=== PATIENT | female | born 1970 | race American Indian/Alaskan Native ===

== ENCOUNTER 2020-09-20 14:22 | Emergency (ER) | payer MEDICAID ==
--- NOTE | 2020-09-20 15:03 | Emergency Department Report ---
HPI - General Chief Complaint: Allergic Reaction Time Seen by Provider: 09/20/20 14:57 - HPI HPI: 50 year old old female presents from [facility] for allergic reaction to medications received at the psychiatric facility. As per MAR alissa bulmaro received Haldol and Benadryl at 10 PM. Patient states she has a previous history of similar reaction to Benadryl in the past. As per review of MAR patient is allergic to guaifenesin/ dextromethorphan and Zestril. Patient is also receiving other scheduled medications as per DEC. As per sitter at the bedside patient has apparently not been sleeping well throughout the night but slept well last night and after she woke up staff noted facial and top lip swelling which has improved spontaneously since this morning. Patient denies wheezing, shortness of breath, tongue swelling, throat swelling ED Past Medical Hx - Past Medical History Hx Hypertension: Yes Hx Diabetes: Yes Additional medical history: Psychosis, hyperlipidemia - Social History Smoking Status: Former Smoker Substance Use Type: None - Medications Home Medications: Home Medications Medication Instructions Recorded Confirmed Last Taken Type EPINEPHrine [Epipen] 0.3 mg IJ ONCE PRN #1 auto.injct 09/20/20 Unknown Rx predniSONE [Deltasone] 40 mg PO QDAY 5 Days tab 09/20/20 Unknown Rx ED Review of Systems ROS: Stated complaint: ALLERGIC REACTION Other details as noted in HPI Physical Exam - Physical Exam Vital Signs: Vital Signs 09/20/20 14:35 Temperature 98.6 F Pulse Rate 84 Respiratory 18 Rate Blood Pressure 187/87 O2 Sat by Pulse 100 Oximetry Physical Exam: General: No acute distress Head: Atraumatic Eyes: normal appearance, periorbital edema ENT: Moist mucous membranes, upper lip edema without tongue edema, no stridor, no posterior pharyngeal edema Neck: Normal appearance, no midline tenderness Chest: Clear to auscultation bilaterally CV: Regular rate and rhythm Abdomen: Soft, normal bowel sounds, nontender, nondistended, no rebound or guarding Back: Normal inspection Extremity: Normal inspection, full range of motion Neuro: Alert O x 3, no facial asymmetry, speech clear, no gross motor sensory deficit Psych: Appropriate behavior Skin: No rash ED Course Vital Signs 09/20/20 14:35 Temperature 98.6 F Pulse Rate 84 Respiratory 18 Rate Blood Pressure 187/87 O2 Sat by Pulse 100 Oximetry - Reevaluation(s) Reevaluation #1: 09/20/20 17:49 Patient has some mild improvement upper lip swelling was persistent periorbital swelling with not any advancement of symptoms. Patient did receive Solu-Medrol 125 mg IV she continues to deny or show clinical findings of lip or tongue swelling or swelling to her throat. She is permitted to eat at this time 09/20/20 18:49 Patient has significant improvement in periorbital and lip edema. She is also speaking more and tolerated food and liquids without difficulty. She will be prepped for ED Medical Decision Making - Medical Decision Making 50-year-old female presents to the hospital secondary to allergic reaction. Patient received Haldol and Benadryl last night. Benadryl was not listed on her list of allergies and patient states that she has had a similar allergic reaction to Benadryl in the past. She received Solu-Medrol IV in the ED and was observed for several hours with significant improvement of periorbital and upper lip swelling. At no time did patient had shortness of breath or airway edema. She be discharged back to [facility] on prednisone for several days Critical Care Time: No Critical care attestation.: If time is entered above; I have spent that time in minutes in the direct care of this critically ill patient, excluding procedure time. ED Disposition Clinical Impression: Allergic reaction to drug Disposition: DC-01 TO HOME OR SELFCARE Is pt being admited?: No Does the pt Need Aspirin: No Condition: Stable Instructions: Allergies, Adult, [id number] Additional Instructions: Take the medication as prescribed. Follow-up with your doctor or doctor/clinic provided. Return if symptoms worsen as indicated by your discharge instructions. Patient reports an allergy to Benadryl with similar reaction. Patient did receive Benadryl while at [facility]. Please continue to avoid administration of Benadryl to the patient. Please note that patient's glucose levels might be more elevated with prednisone use and she may require additional insulin therapy during this time. Prescriptions: predniSONE [Deltasone] 40 mg PO QDAY 5 Days tab EPINEPHrine [Epipen] 0.3 mg IJ ONCE PRN #1 auto.injct PRN Reason: Anaphylaxis Referrals: PRIMARY CARE, [Primary Care Provider] - 3-5 Days DWIGHT SAPP MD [Staff Physician] - 3-5 Days Time of Disposition: 18:58
[2020-09-20] MEDS ORDERED: methylPREDNISolone Sod Succinate 125 MG/2 ML INJ IV ONE (15:13)
[2020-09-20 22:37] VITALS: BP 173/91
== END 2020-09-20 22:35 | disposition home or self-care (01) ==
LOC: ED 14:22 → EDSEX 14:22 → ED 22:35
DX: T78.40XA Allergy, unspecified, initial encounter (principal); I10 Essential (primary) hypertension; E11.9 Type 2 diabetes mellitus without complications; F23 Brief psychotic disorder; Z87.891 Personal history of nicotine dependence; X58.XXXA Exposure to other specified factors, initial encounter
CPT/HCPCS: 96374; 99283; J2930

== ENCOUNTER 2020-09-23 19:46 | Emergency (ER) | payer SELFPAY ==
[2020-09-23 22:02] VITALS: BP 211/94
== END 2020-09-24 | disposition left against medical advice (07) ==
LOC: ED 19:46
DX: Z53.21 Procedure and treatment not carried out due to patient leaving prior to being seen by health care provider (principal)

== ENCOUNTER 2020-09-27 09:43 | Inpatient (IN) | payer MEDICAID ==
--- NOTE | 2020-09-27 10:25 | Consultation ---
History of Present Illness Consult date: 09/27/20 History of present illness: [facility] Date of Service: 09/27/2020 10:01:33 Impression: R41.82 - AMS (Altered Mental Status) Comments/Sign-Out: in absence of clear focal neurological signs/symptoms. This is suggestive of either toxic/metabolic etiology vs. seizure with postictal state. Acute cerebral ischemia is clinically unlikely. CT head finding is likely technical artifact but should f/u with radiology on read. Metrics: Last Known Well: Unknown [employer] Notification Time: 09/27/2020 10:01:18 Arrival Time: 09/27/2020 09:43:00 Stamp Time: 09/27/2020 10:01:33 Time First Login Attempt: 09/27/2020 10:05:00 Video Start Time: 09/27/2020 10:05:00 Symptoms: ms change NIHSS Start Assessment Time: 09/27/2020 10:15:00 Patient is not a candidate for Alteplase/Activase. Patient was not deemed candidate for Alteplase/Activase thrombolytics because of not stroke. Video End Time: 09/27/2020 10:20:11 CT head was reviewed and results were: area of hypodensity right frontoparietal region but may be volume averaging as seen only one slice by my prelim review Clinical Presentation is not Suggestive of Large Vessel Occlusive Disease ED Physician notified of diagnostic impression and management plan on 09/27/2020 10:20:14 Our recommendations are outlined below. Recommendations: defer to primary team to pursue toxic/metabolic workup (including VPA level, nh3, lfts), address HTN and if negative, consider admission for seizure workup with inpatient neuro consult Routine Consultation with Inhouse Neurology for Follow up Care Sign Out: Discussed with Emergency Department Provider History of Present Illness: Patient is a 50 year old Female. Patient was brought by EMS for symptoms of ms change per ED staff: behavioral health hospital staff patient with schizophrenia, bipolar disorder with psychosis was found to be "slumped over on left side" at 7:00 with urinary/fecal incontinence and lethargy since then. Last known well is unknown. She has no reported hx of seizures but is presumably on VPA 500mg BID for mood disorder. Behavioral health staff was concerned about "sepsis" but alissa chamberlain is afebrile per ED staff. Patient unable to provide additional hx. Past Medical History: Hypertension Diabetes Mellitus Hyperlipidemia There is NO history of Atrial Fibrillation There is NO history of Coronary Artery Disease There is NO history of Stroke Anticoagulant use: No Antiplatelet use: aspirin Examination: BP( 201/82, afebrile, neck supple per ED nurse), Pulse(70), Blood Glucose(206) 1A: Level of Consciousness - Requires repeated stimulation to arouse + 2 1B: Ask Month and Age - Could Not Answer Either Question Correctly + 2 1C: Blink Eyes & Squeeze Hands - Performs Both Tasks + 0 2: Test Horizontal Extraocular Movements - Normal + 0 3: Test Visual Key - No Visual Loss + 0 4: Test Facial Palsy (Use Grimace if Obtunded) - Normal symmetry + 0 5A: Test Left Arm Motor Drift - No Drift for 10 Seconds + 0 5B: Test Right Arm Motor Drift - No Drift for 10 Seconds + 0 6A: Test Left Leg Motor Drift - No Drift for 5 Seconds + 0 6B: Test Right Leg Motor Drift - No Drift for 5 Seconds + 0 7: Test Limb Ataxia (FNF/Heel-Koehler) - No Ataxia + 0 8: Test Sensation - Normal; No sensory loss + 0 9: Test Language/Aphasia - Normal; No aphasia + 0 10: Test Dysarthria - Normal + 0 11: Test Extinction/Inattention - No abnormality + 0 NIHSS Score: 4 Consent could not be obtained due to patient status and family not available. Due to the immediate potential for life-threatening deterioration due to underlying acute neurologic illness, I spent 20 minutes providing critical care. This time includes time for face to face visit via telemedicine, review of medical records, imaging studies and discussion of findings with providers, the patient and/or family. Dr Kiesha Arias [employer] Case [id number] Medications and Allergies Allergies Allergy/AdvReac Type Severity Reaction Status Date / Time diphenhydramine Allergy Angioedema Verified 09/20/20 15:16 [From Benadryl] guaifenesin Allergy Anaphylaxis Verified 09/20/20 15:16 lisinopril [From Zestril] Allergy Anaphylaxis Verified 09/20/20 15:16 Home Medications Medication Instructions Recorded Confirmed Last Taken Type EPINEPHrine [Epipen] 0.3 mg IJ ONCE PRN #1 auto.injct 09/20/20 Unknown Rx predniSONE [Deltasone] 40 mg PO QDAY 5 Days tab 09/20/20 Unknown Rx Results - Laboratory Findings Abnormal Lab Findings: Abnormal Labs 09/27/20 10:00 POC Glucose 206 H
--- NOTE | 2020-09-27 10:35 | Cat Scan Report ---
CT head/brain wo con INDICATION / CLINICAL INFORMATION: 50 years Female; MAIN. Left-sided weakness TECHNIQUE: Routine CT head without contrast. All CT scans at this location are performed using CT dos e reduction for ALARA by means of automated exposure control. Motion artifact COMPARISON: None. FINDINGS: BRAIN / INTRACRANIAL CONTENTS: Branch ischemia seen in the right frontoparietal region, involving mot or and sensory cortex, predominantly inferiorly. Subtle changes in much larger MCA distribution may b e present on the right, as well, particularly in the right frontal region. Subtle decreased attenuati on seen in the insular cortex on the right. No signs of hemorrhagic transformation. Otherwise, no acute hemorrhage, mass effect, midline shift, hydrocephalus, or acute, large territori al infarct. No signs of significant atrophy or chronic infarct. No significant white matter abnormali ty seen. CRANIOCERVICAL JUNCTION: No significant abnormality. ORBITS: No significant abnormality of visualized orbits. SINUSES / MASTOIDS: Dehiscence of the lamina papyracea noted on the left. ADDITIONAL FINDINGS: None. IMPRESSION: 1. Findings concerning for ischemic change in portions of the right MCA territory, as described above . CODE STROKE: Exam Completed (NET DEVELOPER SOFTWARE ENGINEER C/CDT): 09/27/2020 9:19 AM Exam Reviewed (NET DEVELOPER SOFTWARE ENGINEER C/CDT): 9:24 AM Time of Communication (NET DEVELOPER SOFTWARE ENGINEER C/CDT): 9:29 AM Licensed Practitioner Receiving Report: Dr. Mccabe Signer Name: Malachi Steel MD, III Signed: 09/27/2020 10:31 AM Workstation Name: [employer]
--- NOTE | 2020-09-27 10:36 | Emergency Department Report ---
ED Neuro Deficit HPI - General Chief Complaint: Neuro Symptoms/Deficit Stated Complaint: AMS Time Seen by Provider: 09/27/20 10:21 Source: EMS Mode of arrival: Ambulatory Limitations: Other - History of Present Illness Initial Comments: Patient is 50 years old female with history of hypertension, diabetes and schizoaffective disorder. Patient brought to the emergency room via EMS from [facility] for evaluation of altered mental status. Unknown time of onset. Psychiatric facility staff found patient around 7 AM today laying on her left side with decreased responsiveness. Stroke protocol immediately initiated and patient moved to CT for stat CT brain without contrast. Stroke telemetry neurology immediately consulted and patient examined by Dr. Arias, and after reviewing the CT brain she indicated that patient is not a TPA candidate secondary to unknown time of onset. Patient is currently not communicating and obtunded however she responded to voice stimuli and she will move all her extremities in an angry way and she will go back to sleep again. -: unknown Location: altered Presenting Symptoms: Present: Altered Mental Status Place: other (psychiatric) - Related Data Home Medications: Previous Rx's Medication Instructions Recorded Last Taken Type EPINEPHrine [Epipen] 0.3 mg IJ ONCE PRN #1 auto.injct 09/20/20 Unknown Rx predniSONE [Deltasone] 40 mg PO QDAY 5 Days tab 09/20/20 Unknown Rx Allergies/Adverse Reactions: Allergies Allergy/AdvReac Type Severity Reaction Status Date / Time diphenhydramine Allergy Angioedema Verified 09/20/20 15:16 [From Benadryl] guaifenesin Allergy Anaphylaxis Verified 09/20/20 15:16 lisinopril [From Zestril] Allergy Anaphylaxis Verified 09/20/20 15:16 ED Review of Systems ROS: Stated complaint: AMS Other details as noted in HPI Comment: Unobtainable due to pts medical conditions ED Past Medical Hx - Past Medical History Hx Hypertension: Yes Hx Diabetes: Yes Additional medical history: Psychosis, hyperlipidemia - Social History Smoking Status: Unknown if ever smoked - Medications Home Medications: Home Medications Medication Instructions Recorded Confirmed Last Taken Type EPINEPHrine [Epipen] 0.3 mg IJ ONCE PRN #1 auto.injct 09/20/20 Unknown Rx predniSONE [Deltasone] 40 mg PO QDAY 5 Days tab 09/20/20 Unknown Rx ED Neuro Physical Exam - General Limitations: Other General appearance: obtunded Suspected Stroke: Yes - Head Head exam: Present: atraumatic, normocephalic, normal inspection - Eye Eye exam: Present: normal appearance, PERRL - ENT ENT exam: Present: normal exam, normal orophraynx, mucous membranes moist - Neck Neck exam: Present: normal inspection, full ROM. Absent: tenderness, meningismus - Respiratory Respiratory exam: Present: normal lung sounds bilaterally - Cardiovascular Cardiovascular Exam: Present: regular rate, normal rhythm, normal heart sounds - GI/Abdominal GI/Abdominal exam: Present: soft, normal bowel sounds. Absent: distended, tenderness, guarding, rebound, rigid, mass, bruit, pulsatile mass, hernia - Extremities Exam Extremities exam: Present: full ROM, normal capillary refill. Absent: pedal edema, calf tenderness - Back Exam Back exam: Present: normal inspection, full ROM. Absent: CVA tenderness (R), CVA tenderness (L) - Neurological Exam Neurological exam: Present: altered - NIHSS Assessment Interval: Baseline 1a. Level of Consciousness: resp stimuli/obtunded 1b. LOC Questions: answers no questions correctly 1c. LOC Commands: performs no tasks correctly 2. Best Gaze: normal 3. Visual: no visual loss 4. Facial Palsy: normal symmetrical movement 5b. Motor Arm Right: no drift 5a. Motor Arm Left: no drift 6a. Motor Leg Left: no drift 6b. Motor Leg Right: no drift 7. Limb Ataxia: absent 8. Sensory: coma/unresponsive 9. Best Language: no aphasia 10. Dysarthria: normal 11. Extinction/Inattention: no abnormality Total Score: 8 Stroke Severity: Moderate Stroke - Skin Skin exam: Present: warm, intact, normal color ED Course Vital Signs 09/27/20 10:33 Temperature 98.1 F Pulse Rate 70 Respiratory 18 Rate Blood Pressure 210/102 Blood Pressure 201/102 [Right] O2 Sat by Pulse 100 Oximetry - Lab Data Result diagrams: 09/27/20 10:50 09/27/20 10:50 Lab Results 09/27/20 09/27/20 09/27/20 Range/Units 10:00 10:50 10:50 WBC 11.2 H (4.5-11.0) K/mm3 RBC 3.00 L (3.65-5.03) M/mm3 Hgb 7.8 L (10.1-14.3) gm/dl Hct 24.1 L (30.3-42.9) % MCV 80 (79-97) fl MCH 26 L (28-32) pg MCHC 32 (30-34) % RDW 16.9 H (13.2-15.2) % Plt Count 169 (140-440) K/mm3 Lymph % (Auto) 24.2 (13.4-35.0) % [place] % (Auto) 8.0 H (0.0-7.3) % Eos % (Auto) 0.5 (0.0-4.3) % Baso % (Auto) 0.3 (0.0-1.8) % Lymph # (Auto) 2.7 (1.2-5.4) K/mm3 [place] # (Auto) 0.9 H (0.0-0.8) K/mm3 Eos # (Auto) 0.1 (0.0-0.4) K/mm3 Baso # (Auto) 0.0 (0.0-0.1) K/mm3 Seg Neutrophils % 67.0 (40.0-70.0) % Seg Neutrophils # 7.5 (1.8-7.7) K/mm3 PT 13.9 (12.2-14.9) Sec. INR 1.09 (0.87-1.13) APTT 25.7 (24.2-36.6) Sec. Sodium (137-145) mmol/L Potassium (3.6-5.0) mmol/L Chloride (98-107) mmol/L Carbon Dioxide (22-30) mmol/L Anion Gap mmol/L BUN (7-17) mg/dL Creatinine (0.6-1.2) mg/dL Estimated GFR ml/min BUN/Creatinine Ratio % Glucose (65-100) mg/dL POC Glucose 206 H (70-105) mg/dL Lactic Acid (0.7-2.0) mmol/L Calcium (8.4-10.2) mg/dL Total Bilirubin (0.1-1.2) mg/dL Direct Bilirubin (0-0.2) mg/dL Indirect Bilirubin mg/dL AST (5-40) units/L ALT (7-56) units/L Alkaline Phosphatase (35-129) units/L Troponin T (0.00-0.029) ng/mL Total Protein (6.3-8.2) g/dL Albumin (3.9-5) g/dL Albumin/Globulin Ratio % Triglycerides (2-149) mg/dL Cholesterol (50-199) mg/dL LDL Cholesterol Direct (50-130) mg/dL HDL Cholesterol (40-59) mg/dL Cholesterol/HDL Ratio % Urine Color (Yellow) Urine Turbidity (Clear) Urine pH (5.0-7.0) Ur Specific [place] (1.003-1.030) Urine Protein (Negative) mg/dL Urine Glucose (UA) (Negative) mg/dL Urine Ketones (Negative) mg/dL Urine Blood (Negative) Urine Nitrite (Negative) Urine Bilirubin (Negative) Urine Urobilinogen (<2.0) mg/dL Ur Leukocyte Esterase (Negative) Urine WBC (Auto) (0.0-6.0) /HPF Urine RBC (Auto) (0.0-6.0) /HPF Urine Mucus /HPF 09/27/20 09/27/20 09/27/20 Range/Units 10:50 10:50 10:50 WBC (4.5-11.0) K/mm3 RBC (3.65-5.03) M/mm3 Hgb (10.1-14.3) gm/dl Hct (30.3-42.9) % MCV (79-97) fl MCH (28-32) pg MCHC (30-34) % RDW (13.2-15.2) % Plt Count (140-440) K/mm3 Lymph % (Auto) (13.4-35.0) % [place] % (Auto) (0.0-7.3) % Eos % (Auto) (0.0-4.3) % Baso % (Auto) (0.0-1.8) % Lymph # (Auto) (1.2-5.4) K/mm3 [place] # (Auto) (0.0-0.8) K/mm3 Eos # (Auto) (0.0-0.4) K/mm3 Baso # (Auto) (0.0-0.1) K/mm3 Seg Neutrophils % (40.0-70.0) % Seg Neutrophils # (1.8-7.7) K/mm3 PT (12.2-14.9) Sec. INR (0.87-1.13) APTT (24.2-36.6) Sec. Sodium 141 (137-145) mmol/L Potassium 3.3 L (3.6-5.0) mmol/L Chloride 99.1 (98-107) mmol/L Carbon Dioxide 35 H (22-30) mmol/L Anion Gap 10 mmol/L BUN 42 H (7-17) mg/dL Creatinine 1.4 H (0.6-1.2) mg/dL Estimated GFR 48 ml/min BUN/Creatinine Ratio 30 % Glucose 239 H (65-100) mg/dL POC Glucose (70-105) mg/dL Lactic Acid 1.40 (0.7-2.0) mmol/L Calcium 8.7 (8.4-10.2) mg/dL Total Bilirubin < 0.20 (0.1-1.2) mg/dL Direct Bilirubin < 0.2 (0-0.2) mg/dL Indirect Bilirubin 0.0 mg/dL AST 18 (5-40) units/L ALT 17 (7-56) units/L Alkaline Phosphatase 48 (35-129) units/L Troponin T 0.067 H (0.00-0.029) ng/mL Total Protein 4.9 L (6.3-8.2) g/dL Albumin 2.4 L (3.9-5) g/dL Albumin/Globulin Ratio 1.0 % Triglycerides 46 (2-149) mg/dL Cholesterol 136 (50-199) mg/dL LDL Cholesterol Direct 81 (50-130) mg/dL HDL Cholesterol 63 H (40-59) mg/dL Cholesterol/HDL Ratio 2.15 % Urine Color (Yellow) Urine Turbidity (Clear) Urine pH (5.0-7.0) Ur Specific [place] (1.003-1.030) Urine Protein (Negative) mg/dL Urine Glucose (UA) (Negative) mg/dL Urine Ketones (Negative) mg/dL Urine Blood (Negative) Urine Nitrite (Negative) Urine Bilirubin (Negative) Urine Urobilinogen (<2.0) mg/dL Ur Leukocyte Esterase (Negative) Urine WBC (Auto) (0.0-6.0) /HPF Urine RBC (Auto) (0.0-6.0) /HPF Urine Mucus /HPF 12/12/20 Range/Units 11:22 WBC (4.5-11.0) K/mm3 RBC (3.65-5.03) M/mm3 Hgb (10.1-14.3) gm/dl Hct (30.3-42.9) % MCV (79-97) fl MCH (28-32) pg MCHC (30-34) % RDW (13.2-15.2) % Plt Count (140-440) K/mm3 Lymph % (Auto) (13.4-35.0) % [place] % (Auto) (0.0-7.3) % Eos % (Auto) (0.0-4.3) % Baso % (Auto) (0.0-1.8) % Lymph # (Auto) (1.2-5.4) K/mm3 [place] # (Auto) (0.0-0.8) K/mm3 Eos # (Auto) (0.0-0.4) K/mm3 Baso # (Auto) (0.0-0.1) K/mm3 Seg Neutrophils % (40.0-70.0) % Seg Neutrophils # (1.8-7.7) K/mm3 PT (12.2-14.9) Sec. INR (0.87-1.13) APTT (24.2-36.6) Sec. Sodium (137-145) mmol/L Potassium (3.6-5.0) mmol/L Chloride (98-107) mmol/L Carbon Dioxide (22-30) mmol/L Anion Gap mmol/L BUN (7-17) mg/dL Creatinine (0.6-1.2) mg/dL Estimated GFR ml/min BUN/Creatinine Ratio % Glucose (65-100) mg/dL POC Glucose (70-105) mg/dL Lactic Acid (0.7-2.0) mmol/L Calcium (8.4-10.2) mg/dL Total Bilirubin (0.1-1.2) mg/dL Direct Bilirubin (0-0.2) mg/dL Indirect Bilirubin mg/dL AST (5-40) units/L ALT (7-56) units/L Alkaline Phosphatase (35-129) units/L Troponin T (0.00-0.029) ng/mL Total Protein (6.3-8.2) g/dL Albumin (3.9-5) g/dL Albumin/Globulin Ratio % Triglycerides (2-149) mg/dL Cholesterol (50-199) mg/dL LDL Cholesterol Direct (50-130) mg/dL HDL Cholesterol (40-59) mg/dL Cholesterol/HDL Ratio % Urine Color Straw (Yellow) Urine Turbidity Clear (Clear) Urine pH 7.0 (5.0-7.0) Ur Specific [place] 1.010 (1.003-1.030) Urine Protein 100 mg/dl (Negative) mg/dL Urine Glucose (UA) >=500 (Negative) mg/dL Urine Ketones Neg (Negative) mg/dL Urine Blood Sm (Negative) Urine Nitrite Neg (Negative) Urine Bilirubin Neg (Negative) Urine Urobilinogen < 2.0 (<2.0) mg/dL Ur Leukocyte Esterase Neg (Negative) Urine WBC (Auto) 1.0 (0.0-6.0) /HPF Urine RBC (Auto) 3.0 (0.0-6.0) /HPF Urine Mucus Few /HPF - EKG Data -: EKG Interpreted by [place] EKG shows normal: sinus rhythm Rate: normal Interpretation: no acute changes - Radiology Data Radiology results: report reviewed - Medical Decision Making Patient is 50 years old female with history of hypertension, diabetes and schizoaffective disorder. Patient brought to the emergency room via EMS from [facility] for evaluation of altered mental status. Unknown time of onset. Psychiatric facility staff found patient around 7 AM today laying on her left side with decreased responsiveness. Stroke protocol immediately initiated and patient moved to CT for stat CT brain without contrast. Stroke telemetry neurology immediately consulted and patient examined by Dr. Arias, and after reviewing the CT brain she indicated that patient is not a TPA candidate secondary to unknown time of onset. Patient is currently not communicating and obtunded however she responded to voice stimuli and she will move all her extremities in an angry way and she will go back to sleep again. Dr. Arias, stated that patient clinical finding does not suggest a large vessels occlusion so there is no need for the CTA brain and neck. Labs reviewed and is unremarkable. Patient given hydralazine 20 mg IV for elevated blood pressure. I discussed the patient with Dr. Bundy, he agreed to admit the patient to medical service for further management. Critical Care Time: Yes Critical care time in (mins) excluding proc time.: 30 Critical care attestation.: If time is entered above; I have spent that time in minutes in the direct care of this critically ill patient, excluding procedure time. ED Disposition Clinical Impression: Altered mental status, Malignant hypertension, Acute CVA (cerebrovascular accident) Disposition: OP ADMIT IP TO THIS HOSP Is pt being admited?: Yes Condition: Stable Instructions: Hypertension (ED) Referrals: PRIMARY CARE, [Primary Care Provider] - 3-5 Days
--- NOTE | 2020-09-27 11:25 | XRay Report ---
CHEST 1 VIEW 09/27/2020 10:12 AM INDICATION / CLINICAL INFORMATION: AMS. COMPARISON: None available. FINDINGS: SUPPORT DEVICES: None. HEART / MEDIASTINUM: No significant abnormality. LUNGS / PLEURA: No significant pulmonary or pleural abnormality. No pneumothorax. ADDITIONAL FINDINGS: No significant additional findings. IMPRESSION: 1. No acute findings. Signer Name: Arsalan Reyna MD Signed: 09/27/2020 11:20 AM Workstation Name: [id number]
[2020-09-27 11:26] LABS: Basophils % (Auto) 0.3 % (0.0-1.8); Eosinophils # (Auto) 0.1 K/mm3 (0.0-0.4); Eosinophils % (Auto) 0.5 % (0.0-4.3); Hematocrit 24.1 % (30.3-42.9); Hemoglobin 7.8 gm/dl (10.1-14.3); Lymphocytes # (Auto) 2.7 K/mm3 (1.2-5.4); Lymphocytes % (Auto) 24.2 % (13.4-35.0); Mean Corpuscular HGB Conc 32 % (30-34); Mean Corpuscular Volume 80 fl (79-97); Monocytes # (Auto) 0.9 K/mm3 (0.0-0.8); Platelet Count 169 K/mm3 (140-440); Red Cell Distribution Width 16.9 % (13.2-15.2)
[2020-09-27 11:48] LABS: INR 1.09 (0.87-1.13)
[2020-09-27 11:49] LABS: Calcium 8.7 mg/dL (8.4-10.2); Partial Thromboplastin Time 25.7 Sec. (24.2-36.6)
[2020-09-27 11:51] LABS: Alanine Aminotransferase 17 units/L (7-56); Albumin 2.4 g/dL (3.9-5)
[2020-09-27 11:55] LABS: Bilirubin,Direct < 0.2 mg/dL (0-0.2)
[2020-09-27 12:01] LABS: Bilirubin,Urine NEG (Negative); Blood,Urine SM (Negative); Color,Urine Straw (Yellow); Mucus,Urine FEW /HPF; Urobilinogen,Urine < 2.0 mg/dL (<2.0)
[2020-09-27 12:42] LABS: Chol/HDL Ratio 2.15 %
[2020-09-27] MEDS ORDERED: hydrALAZINE 20 MG/1 ML INJ IV ONE (12:59)
--- NOTE | 2020-09-27 13:16 | History and Physical Report ---
History of Present Illness Chief complaint: She was weak on her left side and could not walk History of present illness: 50 YO Female currently an inpatient at [facility] with HTN, DM, Obesity, HLD, Psychosis, Schizoaffective Disorder presents to ED for evaluation. Patient has tangential thinking and is confused and unable to provide history. Patient history provided by her sitter who was at the bedside during exam and interview. As per sitter, the patient was in her usual state of health at bedtime which is around 2300 hrs. The patient was found at 0700 hrs. lying on her left side with decreased responsiveness. Patient was unable to stand and was unable to speak clearly. EMS was notified and upon arrival the patient was found to be in distress with a neurologic deficit. A code stroke was called and the patient was transported to [facility] for further care and evaluation of the aforementioned symptoms. The patient was seen and evaluated in the emergency department. All labs and imaging studies reviewed. The patient was found to have clinical symptoms consistent with CVA as well as accelerated hypertension and acute kidney injury with acute tubular necrosis. The patient was placed in observation status and admitted to telemetry and initiated on stroke protocol due to increased risk of worsening symptoms. Teleneurology was consulted in ED. Patient was deemed not to be a candidate for TPA. No reports of fever, chills, chest pain, palpitations, productive cough, skin rash, trauma, recent ill contacts, or known exposure to COVID-19. No prior admission for review. All medication listed at time of admission has been reconciled. Past History Past Medical History: diabetes, hypertension, hyperlipidemia, other (See HPI) Past Surgical History: No surgical history, Other (Reviewed) Social history: single. denies: smoking, alcohol abuse, prescription drug abuse Family history: diabetes, hypertension Medications and Allergies Allergies Allergy/AdvReac Type Severity Reaction Status Date / Time diphenhydramine Allergy Angioedema Verified 09/20/20 15:16 [From Benadryl] guaifenesin Allergy Anaphylaxis Verified 09/20/20 15:16 lisinopril [From Zestril] Allergy Anaphylaxis Verified 09/20/20 15:16 Home Medications Medication Instructions Recorded Confirmed Last Taken Type EPINEPHrine [Epipen] 0.3 mg IJ ONCE PRN #1 auto.injct 09/20/20 Unknown Rx predniSONE [Deltasone] 40 mg PO QDAY 5 Days tab 09/20/20 Unknown Rx Review of Systems ROS unobtainable: due to mental status Exam - Constitutional Vitals: Temp Pulse Resp BP Pulse Ox 98.1 F 70 18 201/102 100 09/27/20 10:33 09/27/20 10:33 09/27/20 10:33 09/27/20 10:33 09/27/20 10:33 General appearance: Present: mild distress - EENT Eyes: Present: PERRL ENT: hearing intact, clear oral mucosa - Neck Neck: Present: supple, normal ROM - Respiratory Respiratory effort: normal Respiratory: bilateral: CTA - Cardiovascular Heart Sounds: Present: S1 & S2. Absent: rub, click - Extremities Extremities: pulses symmetrical, No edema Peripheral Pulses: within normal limits - Abdominal General gastrointestinal: Present: soft, non-tender, non-distended, normal bowel sounds Female genitourinary: Present: normal - Integumentary Integumentary: Present: clear, warm, dry - Musculoskeletal Musculoskeletal: generalized weakness - Psychiatric Psychiatric: no appropriate mood/affect, no intact judgment & insight, no memory intact, agitated - Neurologic Neurologic: CNII-XII intact, moves all extremities, no gait normal HEART Score - HEART Score Troponin: Troponin T 0.067 ng/mL (0.00-0.029) H 09/27/20 10:50 Results - Labs CBC & Chem 7: 09/27/20 10:50 09/27/20 10:50 Labs: Abnormal lab results 09/27/20 09/27/20 09/27/20 Range/Units 10:00 10:50 10:50 WBC 11.2 H (4.5-11.0) K/mm3 RBC 3.00 L (3.65-5.03) M/mm3 Hgb 7.8 L (10.1-14.3) gm/dl Hct 24.1 L (30.3-42.9) % MCH 26 L (28-32) pg RDW 16.9 H (13.2-15.2) % [place] % (Auto) 8.0 H (0.0-7.3) % [place] # (Auto) 0.9 H (0.0-0.8) K/mm3 Potassium 3.3 L (3.6-5.0) mmol/L Carbon Dioxide 35 H (22-30) mmol/L BUN 42 H (7-17) mg/dL Creatinine 1.4 H (0.6-1.2) mg/dL Glucose 239 H (65-100) mg/dL POC Glucose 206 H (70-105) mg/dL Troponin T 0.067 H (0.00-0.029) ng/mL Total Protein (6.3-8.2) g/dL Albumin (3.9-5) g/dL HDL Cholesterol 63 H (40-59) mg/dL 09/27/20 Range/Units 10:50 WBC (4.5-11.0) K/mm3 RBC (3.65-5.03) M/mm3 Hgb (10.1-14.3) gm/dl Hct (30.3-42.9) % MCH (28-32) pg RDW (13.2-15.2) % [place] % (Auto) (0.0-7.3) % [place] # (Auto) (0.0-0.8) K/mm3 Potassium (3.6-5.0) mmol/L Carbon Dioxide (22-30) mmol/L BUN (7-17) mg/dL Creatinine (0.6-1.2) mg/dL Glucose (65-100) mg/dL POC Glucose (70-105) mg/dL Troponin T (0.00-0.029) ng/mL Total Protein 4.9 L (6.3-8.2) g/dL Albumin 2.4 L (3.9-5) g/dL HDL Cholesterol (40-59) mg/dL Assessment and Plan - Patient Problems (1) Acute CVA (cerebrovascular accident) Current Visit: Yes Status: Acute Plan to address problem: CVA protocol: CT head, neuro check, seizure precautions, aspiration precautions, physical therapy consulted, Occupational Therapy consulted, speech therapy consulted, teleneurology consulted in ED, antiplatelet therapy, lipid panel, statin therapy, carotid Doppler, echocardiogram. (2) Malignant hypertension Current Visit: Yes Status: Acute Plan to address problem: Monitor blood pressure every shift, continue medical management. (3) Acute kidney injury (KWASI) with acute tubular necrosis (ATN) Current Visit: Yes Status: Acute Plan to address problem: BMP, IV fluid resuscitation therapy, repeat BMP in a.m. (4) Diabetes Current Visit: Yes Status: Acute Plan to address problem: Sliding-scale insulin, Accu-Chek, consistent carbohydrate diet, hypoglycemia protocol. (5) DVT prophylaxis Current Visit: Yes Status: Acute Plan to address problem: SCD to bilateral lower extremities while in bed, patient is ambulatory
[2020-09-27] MEDS ORDERED: PROMETHAZINE 25 MG RECT SUPP PR PRN (15:00)
[2020-09-27] MEDS ORDERED: METOCLOPRAMIDE 10 MG TAB PO PRN (15:00)
[2020-09-27] MEDS ORDERED: ONDANSETRON 4 MG/2 ML INJ IV PRN (15:00)
[2020-09-27] MEDS ORDERED: ACETAMINOPHEN 325 MG TAB PO PRN (15:00)
[2020-09-27] MEDS ORDERED: MAGNESIUM HYDROXIDE (MOM) ORAL LIQD UDC PO PRN (15:00)
[2020-09-27] MEDS: LORazepam 2 MG/ML VIAL IV PRN (17:54)
[2020-09-27] MEDS ORDERED: ZIPRASIDONE MESYLATE 20 MG VIAL IM ONE (18:00)
[2020-09-28] MEDS: SODIUM CHLORIDE 0.9% 1000 ML 1,000 ML IV SCH ×2 (01:48→11:18)
[2020-09-28] MEDS: levETIRAcetam 750 MG in DEXTROSE 5% IN WATER 100 ML IV SCH ×2 (10:57→22:19)
[2020-09-28] MEDS: ASPIRIN 325 MG TAB PO SCH (10:57)
--- NOTE | 2020-09-28 15:08 | Progress Note ---
Assessment and Plan -- Acute encephalopathy - post ictal ? Patient admitted with CVA protocol -CT head showed no acute process Concern for acute seizure, neurology consulted and will follow recommendation Placed on Keppra, continue to monitor for neuro status --Schizoaffective disorder We will resume her home psych medications --Acute seizure Patient on Depakote at home, check Depakote level Placed on Keppra, follow EEG and neurology recommendation -- Malignant hypertension Monitor blood pressure every shift, continue medical management. Adjust BP meds as needed -- Acute kidney injury (KWASI) on possible CKD Likely due to vasomotor nephropathy IV fluid resuscitation therapy, repeat BMP in a.m. -- Diabetes type II Continue sliding-scale insulin, Accu-Chek, consistent carbohydrate diet, hypoglycemia protocol. --Hypoglycemia, patient placed on D5 normal saline We will hold any long-acting insulin --DVT prophylaxis SCD to bilateral lower extremities while in bed, patient is ambulatory 09/28: consult neuro, start on keppra for possible seizure. D5NS for recurrent hypoglycemia Subjective Date of service: 09/28/20 Interval history: Patient seen and examined. Medical records and medication list reviewed. No acute event overnight noted by the RN. Patient denies any chest pain or difficulty breathing. Patient is tolerating diet but appears very lethargic Discussed plan of care at bedside with RN. Objective - Exam Narrative Exam: General appearance: Present: no distress - EENT Eyes: Present: PERRL ENT: hearing intact, clear oral mucosa - Neck Neck: Present: supple, normal ROM - Respiratory Respiratory effort: normal Respiratory: bilateral: CTA - Cardiovascular Heart Sounds: Present: S1 & S2. Absent: rub, click - Extremities Extremities: pulses symmetrical, No edema Peripheral Pulses: within normal limits - Abdominal General gastrointestinal: Present: soft, non-tender, non-distended, normal bowel sounds Female genitourinary: Present: normal - Integumentary Integumentary: Present: clear, warm, dry - Musculoskeletal Musculoskeletal: generalized weakness - Psychiatric Psychiatric: no appropriate mood/affect, no intact judgment & insight, no memory intact, agitated - Neurologic Neurologic: CNII-XII intact, moves all extremities, no gait normal - Constitutional Vitals: Vital Signs - 12hr 09/28/20 09/28/20 09/28/20 03:11 08:11 11:18 Temperature 99.3 F 98.9 F 98.6 F Pulse Rate 78 77 77 Respiratory 18 20 20 Rate Blood Pressure 179/83 193/88 195/93 O2 Sat by Pulse 99 100 95 Oximetry - Labs CBC & Chem 7: 09/27/20 10:50 09/29/20 20:56 Labs: Abnormal lab results 09/28/20 Range/Units 11:16 POC Glucose 67 L (70-105) mg/dL HEART Score - HEART Score Troponin: Troponin T 0.067 ng/mL (0.00-0.029) H 09/27/20 10:50
[2020-09-28] MEDS ORDERED: D5W/0.9% NACL 1,000 ML IV SCH (16:00)
[2020-09-28 16:19] LABS: Calcium 8.6 mg/dL (8.4-10.2)
[2020-09-28] MEDS: hydrALAZINE 25 MG TAB PO SCH (16:45)
[2020-09-28] MEDS: amLODIPine 10 MG TAB PO SCH (16:45)
[2020-09-28] MEDS: INSULIN REGULAR, HUMAN 100 UNIT/ML 3ML VIAL SUB-Q SCH (17:03)
[2020-09-28] MEDS: METOPROLOL TARTRATE 25 MG TAB PO SCH (22:18)
[2020-09-29] MEDS: INSULIN REGULAR, HUMAN 100 UNIT/ML 3ML VIAL SUB-Q SCH ×4 (00:25→18:40)
[2020-09-29] MEDS: hydrALAZINE 25 MG TAB PO SCH ×3 (00:34→16:08)
[2020-09-29] MEDS ORDERED: amLODIPine 5 MG TAB PO SCH (10:00)
[2020-09-29] MEDS: amLODIPine 10 MG TAB PO SCH (10:15)
[2020-09-29] MEDS: METOPROLOL TARTRATE 25 MG TAB PO SCH ×3 (10:16→21:09)
[2020-09-29] MEDS: ASPIRIN 325 MG TAB PO SCH (10:16)
--- NOTE | 2020-09-29 11:08 | Consultation ---
History of Present Illness Consult date: 09/29/20 Requesting physician: CANDICE DAMICO Reason for Consult: ?Seizure Chief complaint: ?Seizure History of present illness: 50 yo female with htn, dm, hld, schizophrenia, bipolar disorder with psychosis, found by staff at [facility] to be (per teleneurology consult) ""slumped over on left side" at 7:00 with urinary/fecal incontinence and lethargy since then." No known hx of seizure disorder. Staff was concerned about sepsis. Patient is on VPA 500 mg bid for mood d/o. Patient does not recall the incident. She is focused on "swelling in my legs". She has no other concerns at present. Past History Past Medical History: diabetes, hypertension, hyperlipidemia, other (See HPI) Past Surgical History: No surgical history, Other (Reviewed) Social history: single. denies: smoking, alcohol abuse, prescription drug abuse Family history: diabetes, hypertension Medications and Allergies Allergies Allergy/AdvReac Type Severity Reaction Status Date / Time diphenhydramine Allergy Angioedema Verified 09/20/20 15:16 [From Benadryl] guaifenesin Allergy Anaphylaxis Verified 09/20/20 15:16 lisinopril [From Zestril] Allergy Anaphylaxis Verified 09/20/20 15:16 Penicillins Allergy Unknown Verified 09/27/20 20:49 Home Medications Medication Instructions Recorded Confirmed Last Taken Type Amlodipine Besylate [Norvasc] 10 mg PO QAM 09/27/20 09/27/20 09/26/20 History Aspirin EC [Halfprin EC] 81 mg PO QDAY 09/27/20 09/27/20 09/26/20 History AtorvaSTATin [Lipitor] 20 mg PO QHS 09/27/20 09/27/20 09/26/20 History Benztropine [Cogentin] 1 mg PO BID 09/27/20 09/27/20 09/26/20 History Divalproex [Joe HERNÁNDEZ] 500 mg PO QAM 09/27/20 09/27/20 09/26/[address] Tootie HERNÁNDEZ] 500 mg PO QHS 09/27/20 09/27/20 09/26/20 History Insulin Glargine [Lantus VIAL] 35 unit SUB-Q QHS 09/27/20 09/27/20 Unknown History LORazepam [Ativan] 1 mg PO BID 09/27/20 09/27/20 09/26/20 History Losartan [Cozaar] 100 mg PO QDAY 09/27/20 09/27/20 09/26/20 History PARoxetine HCl [Paxil] 30 mg PO QAM 09/27/20 09/27/20 09/26/20 History QUEtiapine [SEROquel] 200 mg PO QAM 09/27/20 09/27/20 09/26/20 History SEROquel 600 mg PO QHS 09/27/20 09/27/20 09/26/20 History fluPHENAZine HCl [Prolixin] 5 mg PO BID 09/27/20 09/27/20 09/26/20 History hydroCHLOROthiazide [HCTZ] 25 mg PO QDAY 09/27/20 09/27/20 09/26/20 History propranoloL [Inderal] 20 mg PO BID 09/27/20 09/27/20 09/26/20 History propranoloL [Inderal] 40 mg PO BID 09/27/20 09/27/20 09/26/20 History traZODone [Desyrel] 200 mg PO QHS 09/27/20 09/27/20 09/26/20 History Active Meds: Active Medications Acetaminophen (Acetaminophen 325 Mg Tab) 650 mg PO Q4H PRN PRN Reason: Pain, Mild (1-3) Amlodipine Besylate (Amlodipine 10 Mg Tab) 10 mg PO QDAY [facility] Last Admin: 09/29/20 10:15 Dose: 10 mg Documented by: Aspirin (Aspirin 325 Mg Tab) 325 mg PO QDAY [facility] Last Admin: 09/29/20 10:16 Dose: 325 mg Documented by: Atorvastatin Calcium (Atorvastatin 40 Mg Tab) 40 mg PO QHS [facility] Last Admin: 09/28/20 22:18 Dose: 40 mg Documented by: Bisacodyl (Bisacodyl 10 Mg Rect Supp) 10 mg NC QDAY PRN PRN Reason: Constipation Hydralazine HCl (Hydralazine 25 Mg Tab) 50 mg PO Q8H [facility] Last Admin: 09/29/20 10:19 Dose: 50 mg Documented by: Levetiracetam 750 mg/ Dextrose 107.5 mls @ 400 mls/hr IV Q12HR [facility] Last Admin: 09/28/20 22:19 Dose: 400 mls/hr Documented by: Dextrose/Sodium Chloride (D5ns) 1,000 mls @ 50 mls/hr IV DIRECT [facility] Last Admin: 09/28/20 16:45 Dose: 75 mls/hr Documented by: Insulin Human Regular (Insulin Regular, Human 100 Unit/Ml 3ml Vial) 0 unit SUB- Q Q6HR [facility]; Protocol Last Admin: 09/29/20 05:49 Dose: 300 unit Documented by: Lorazepam (Lorazepam 2 Mg/Ml Vial) 2 mg IV Q4H PRN PRN Reason: Agitation Last Admin: 09/27/20 17:54 Dose: 2 mg Documented by: Magnesium Hydroxide (Magnesium Hydroxide (Mom) Oral Liqd Udc) 30 ml PO Q4H PRN PRN Reason: Constipation Metoclopramide HCl (Metoclopramide 10 Mg Tab) 10 mg PO Q6H PRN PRN Reason: Nausea And Vomiting Metoprolol Tartrate (Metoprolol Tartrate 25 Mg Tab) 25 mg PO BID [facility] Last Admin: 09/29/20 10:16 Dose: 25 mg Documented by: Ondansetron HCl (Ondansetron 4 Mg/2 Ml Inj) 4 mg IV Q8H PRN PRN Reason: Nausea And Vomiting Promethazine HCl (Promethazine 25 Mg Rect Supp) 25 mg NC Q6H PRN PRN Reason: Nausea And Vomiting Sodium Chloride (Sodium Chloride 0.9% 10 Ml Flush Syringe) 10 ml IV PRN PRN PRN Reason: LINE FLUSH Review of Systems All systems: negative (as per HPI;) Physical Examination - Vital Signs Vital Signs: Vital Signs Pulse Resp Pulse Ox 68 15 96 09/27/20 10:01 09/27/20 10:01 09/27/20 10:01 - Additional Exam Additional Exam: Gen: nad, well-nourished; Head: normocephalic; Eyes: no gaze deviation; no ptosis; ENT: normal vocalization; CVS: warm and well-perfused; Pulm: no respiratory distress; GI: non-distended, protuberant; Ext: no cyanosis at distal extremities; Skin: no acute rash at distal extremities; Heme: no pathologic ecchymosis at distal extremities; Neuro: alert, oriented to name, age, month, year, surroundings, no dysarthria, no aphasia, CN 2 - PERRL, visual ortiz intact, CN 3, 4, 6 - EOMI, CN 5 - facial sensation symmetric to light touch, CN 7 - facial movement symmetric, CN 8 - hearing grossly intact, CN 9, 10 - uvula midline, CN 11 - shrug symmetric, CN 12 - tongue midline; Motor - at least 4/5 in all exts; resting tremor at left/right hands; Sensory - light touch symmetric, Cerebellar - fnf/hts intact, Gait - deferred secondary to fall risk Results - Laboratory Findings CBC and BMP: 09/27/20 10:50 09/28/20 15:20 Abnormal Lab Findings: Abnormal Labs 09/27/20 09/27/20 09/27/20 10:00 10:50 10:50 WBC 11.2 H RBC 3.00 L Hgb 7.8 L Hct 24.1 L MCH [address] [place] % (Auto) 8.[address] [place] # (Auto) 0.9 H Potassium 3.3 L Carbon Dioxide 35 H BUN 42 H Creatinine 1.4 H Glucose 239 H POC Glucose 206 H Troponin T 0.067 H Total Protein Albumin HDL Cholesterol 63 H 09/27/20 09/28/20 09/28/20 10:50 11:16 15:20 WBC RBC Hgb Hct MCH RDW [place] % (Auto) [place] # (Auto) Potassium 3.5 L Carbon Dioxide 34 H BUN 31 H Creatinine Glucose 122 H POC Glucose 67 L Troponin T Total Protein 4.9 L Albumin 2.4 L HDL Cholesterol 09/28/20 09/28/20 09/29/20 15:46 20:48 05:10 WBC RBC Hgb Hct MCH RDW [place] % (Auto) [place] # (Auto) Potassium Carbon Dioxide BUN Creatinine Glucose POC Glucose 113 H 150 H 166 H Troponin T Total Protein Albumin HDL Cholesterol Assessment and Plan 50 yo female with htn, dm, hld, schizophrenia, bipolar disorder with psychosis, found w/ encephalopathy w/ urinary/fecal incontinence. 1. Seizure - pending EEG; MRI Brain w/ wo contrast if no contraindications; continue vpa 500 mg bid; ordered depakote level. 2. Stroke - aspirin 81 mg po qday OR aspirin 300 mg pr qday; statin therapy for a goal LDL of 70; mri brain w/ wo contrast if no contraindications; TTE, CUS, TSH-T4, fasting lipid panel, A1c; permissive hypertension w/ SBP 160-220 mmHg, which may be normalized after 48 hours if no severe cerebrovascular disease; pt/ot/st/swallow evaluation/monitoring. 3. Metabolic Encephalopathy - in the setting of uremia, r/o underlying infection per primary team; ordered ammonia level. 4. Hypertension - goal SBP 160-220 mmHg and DBP 80-100 mmHg as a part of stroke protocol; may be normalized after 48 hours if no severe cerebrovascular disease. 5. Diabetes Mellitus - maintain euglycemia. 6. Hyperlipidemia - goal LDL of 70 w/ statin therapy if no contraindications. Eleno Smith MD Neurology
[2020-09-29] MEDS ORDERED: NON-FORMULARY EACH (Losartan [Cozaar] 100 MG Tablet) PO SCH (12:30)
[2020-09-29] MEDS: levETIRAcetam 500 MG/5 ML ORAL LIQD PO SCH ×2 (12:35→21:11)
[2020-09-29] MEDS ORDERED: hydroCHLOROthiazide 25 MG TAB PO SCH (13:00)
--- NOTE | 2020-09-29 15:54 | Progress Note ---
Assessment and Plan -- Acute encephalopathy - post ictal ? Patient admitted with CVA protocol -CT head showed no acute process Concern for acute seizure, neurology consulted and recommended MRI brain and EEG Placed on Keppra, continue to monitor for neuro status --Acute psychosis with schizoaffective disorder We will resume her home psych medications Patient appears very agitated today -consult psych and follow recommendation --Acute seizure Patient on Depakote at home, check Depakote level Placed on Keppra, follow EEG and neurology recommendation -- Malignant hypertension Monitor blood pressure every shift, continue medical management. Adjust BP meds as needed -- Acute kidney injury (KWASI) on possible CKD Likely due to vasomotor nephropathy IV fluid resuscitation therapy, repeat BMP in a.m. -- Diabetes type II Continue sliding-scale insulin, Accu-Chek, consistent carbohydrate diet, hypoglycemia protocol. --Hypoglycemia, patient placed on D5 normal saline We will hold any long-acting insulin --DVT prophylaxis SCD to bilateral lower extremities while in bed, patient is ambulatory Brief History: 50 YO Female currently an inpatient at [facility] with HTN, DM, Obesity, HLD, Psychosis, Schizoaffective Disorder presents to ED for AMS. Per family patient was found at 0700 hrs. lying on her left side with decreased responsiveness. Patient was unable to stand and was unable to speak clearly. The patient was seen and evaluated in the emergency department and noted accelerated hypertension and acute kidney injury. Teleneurology was consulted in ED and recommended to admit for possible seizure versus metabolic encephalopathy. 09/28: consult neuro, start on keppra for possible seizure. D5NS for recurrent hypoglycemia 09/29: MRI pending. patient noted agitated, consulted psych Subjective Date of service: 09/29/20 Interval history: Patient seen and examined. Medical records and medication list reviewed. No acute event overnight noted by the RN. Patient appears very agitated today and wandering around nursing station Discussed plan of care at bedside with RN. Objective - Exam Narrative Exam: General appearance: Present: Agitated and restless - EENT Eyes: Present: PERRL ENT: hearing intact, clear oral mucosa - Neck Neck: Present: supple, normal ROM - Respiratory Respiratory effort: normal Respiratory: bilateral: CTA - Cardiovascular Heart Sounds: Present: S1 & S2. Absent: rub, click - Extremities Extremities: pulses symmetrical, No edema Peripheral Pulses: within normal limits - Abdominal General gastrointestinal: Present: soft, non-tender, non-distended, normal bowel sounds Female genitourinary: Present: normal - Integumentary Integumentary: Present: clear, warm, dry - Musculoskeletal Musculoskeletal: No joint swelling or effusion - Psychiatric Psychiatric: no appropriate mood/affect, no intact judgment & insight, agitated - Neurologic Neurologic: CNII-XII intact, moves all extremities, gait normal - Constitutional Vitals: Vital Signs - 12hr 09/29/20 09/29/20 09/29/20 04:32 07:44 10:15 Temperature 98.2 F 97.3 F L Pulse Rate 68 70 70 Respiratory 18 20 Rate Blood Pressure 138/63 181/85 181/85 O2 Sat by Pulse 99 95 Oximetry 09/29/20 09/29/20 09/29/20 10:16 10:19 11:37 Temperature 122.0 F H Pulse Rate 70 70 73 Respiratory 20 Rate Blood Pressure 181/85 181/85 181/77 O2 Sat by Pulse 97 Oximetry - Labs CBC & Chem 7: 09/27/20 10:50 09/29/20 20:56 Labs: Abnormal lab results 09/28/20 09/28/20 09/29/20 Range/Units 15:20 20:48 05:10 Potassium 3.5 L (3.6-5.0) mmol/L Carbon Dioxide 34 H (22-30) mmol/L BUN 31 H (7-17) mg/dL Glucose 122 H (65-100) mg/dL POC Glucose 150 H 166 H (70-105) mg/dL 09/29/20 Range/Units 11:56 Potassium (3.6-5.0) mmol/L Carbon Dioxide (22-30) mmol/L BUN (7-17) mg/dL Glucose (65-100) mg/dL POC Glucose 158 H (70-105) mg/dL HEART Score - HEART Score Troponin: Troponin T 0.067 ng/mL (0.00-0.029) H 09/27/20 10:50
[2020-09-29] MEDS: LOSARTAN 50 MG TAB PO SCH (16:08)
--- NOTE | 2020-09-29 20:08 | Vascular Lab Report ---
DUPLEX DOPPLER ULTRASOUND CAROTID, BILATERAL INDICATION / CLINICAL INFORMATION: stroke. COMPARISON: None available. FINDINGS: RIGHT CAROTID: - PLAQUE ESTIMATE (%): < 50% - CCA velocity: 84.2 cm/sec. - ICA peak systolic velocity: 107 cm/sec. - ICA/CCA PSV Ratio: 1.27 Right Vertebral Artery: Antegrade flow. LEFT CAROTID: - PLAQUE ESTIMATE: < 50% - CCA velocity: 90.2 cm/sec. - ICA peak systolic velocity: 87.3 cm/sec. - ICA/CCA PSV Ratio: 0.97 Left Vertebral Artery: Antegrade flow. IMPRESSION: 1. Right Internal Carotid Artery: Less than 50% diameter stenosis. 2. Left Internal Carotid Artery: Less than 50% diameter stenosis. Velocity criteria are extrapolated from diameter data as defined by the Society of Radiologists in Ul trasound Consensus Conference, Radiology 2003; 229;340-346. NO STENOSIS (NORMAL) * Plaque = none; ICA PSV < 125 cm/sec; ICA/CCA PSV Ratio < 2.0 <50% STENOSIS * Plaque < 50%; ICA PSV < 125 cm/sec; ICA/CCA PSV Ratio < 2.0 50-69% STENOSIS * Plaque > 50%; ICA PSV = 125-230 cm/sec; ICA/CCA PSV Ratio = 2.0-4.0 >70% BUT <100% STENOSIS * Plaque > 50%; ICA PSV > 230 cm/sec; ICA/CCA PSV Ratio > 4.0 NEAR OCCLUSION * Plaque = visible lumen; ICA PSV = high/low/none; ICA/CCA PSV Ratio = variable TOTAL OCCLUSION * Plaque = no lumen; ICA PSV = none; ICA/CCA PSV Ratio = N/A Signer Name: Dandy Pond MD Signed: 09/29/2020 8:04 PM Workstation Name: [email or web address]
[2020-09-29] MEDS: traZODone 100 MG TAB PO SCH (21:10)
[2020-09-29] MEDS: BENZTROPINE 1 MG TAB PO SCH (21:10)
[2020-09-29] MEDS ORDERED: PROPRANOLOL 10 MG TAB PO SCH (22:00)
[2020-09-30] MEDS: hydrALAZINE 25 MG TAB PO SCH ×3 (00:17→17:20)
[2020-09-30] MEDS: INSULIN REGULAR, HUMAN 100 UNIT/ML 3ML VIAL SUB-Q SCH ×4 (00:17→17:21)
[2020-09-30] MEDS: LORazepam 2 MG/ML VIAL IV PRN (02:55)
[2020-09-30] MEDS: levETIRAcetam 750 MG in DEXTROSE 5% IN WATER 100 ML IV SCH (09:30)
[2020-09-30] MEDS ORDERED: SODIUM CHLORIDE 0.9% 1000 ML 1,000 ML IV SCH (10:15)
--- NOTE | 2020-09-30 10:22 | Magnetic Resonance Report ---
MRI BRAIN WITHOUT CONTRAST INDICATION / CLINICAL INFORMATION: seizure. TECHNIQUE: Multiplanar, multisequence MR images of the brain were obtained. COMPARISON: Head CT on 09/27/2020 FINDINGS: BRAIN / INTRACRANIAL CONTENTS: No acute ischemia, acute hemorrhage, mass effect, midline shift, or hy drocephalus. No chronic infarct or significant atrophy. No significant demyelinating changes. CRANIOCERVICAL JUNCTION: No significant abnormality. VASCULAR FLOW-VOIDS: No significant abnormality. ORBITS: No significant abnormality of visualized orbits. SINUSES / MASTOIDS: No significant abnormality of visualized sinuses and mastoid air cells. ADDITIONAL FINDINGS: None. IMPRESSION: 1. No evidence of acute infarct or other acute intracranial abnormality. Signer Name: Robbin Levine MD Signed: 09/30/2020 10:18 AM Workstation Name: [id number]
[2020-09-30] MEDS ORDERED: POTASSIUM CHLORIDE ER 20 MEQ TAB PO ONE (11:00)
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
[2020-09-30] MEDS: levETIRAcetam 500 MG/5 ML ORAL LIQD PO SCH ×2 (11:07→21:01)
[2020-09-30] MEDS: METOPROLOL TARTRATE 25 MG TAB PO SCH ×2 (11:07→21:10)
[2020-09-30] MEDS: QUEtiapine 200 MG TAB PO SCH (11:07)
[2020-09-30] MEDS: amLODIPine 10 MG TAB PO SCH (11:07)
[2020-09-30] MEDS: BENZTROPINE 1 MG TAB PO SCH ×2 (11:08→21:01)
[2020-09-30] MEDS: LOSARTAN 50 MG TAB PO SCH (11:08)
[2020-09-30] MEDS: ASPIRIN 325 MG TAB PO SCH (11:08)
--- NOTE | 2020-09-30 12:37 | Discharge Summary ---
Providers - Providers Date of Admission: 09/27/20 14:30 Date of discharge: 09/30/20 Attending physician: CANDICE DAMICO 09/27/20 14:13 Occupational Therapy Evaluate and Treat [CONS] Routine Comment: Reason For Exam: Neuro deficits Physical Therapy Evaluation and Treat [CONS] Routine Comment: Reason For Exam: Neuro deficits 09/28/20 10:15 Consult to Physician [CONS] Routine Comment: Consulting Provider: ZAK KIRK Physician Instructions: Reason For Exam: ? seizure 09/29/20 14:20 Consult to Mental Health [CONS] Routine Reason For Exam: psychosis 09/29/20 16:00 Midline [Consult to PICC Line RN] [CONS] Stat Reason For Exam: need iv fluid and abx Type Line:: Midline Primary care physician: CLEANING SUPERVISOR Hospitalization Condition: Stable Pertinent studies: Chest x-ray, head CT, carotid Doppler study, brain MRI Hospital course: 50 YO Female currently an inpatient at [facility] with HTN, DM, Obesity, HLD, Psychosis, Schizoaffective Disorder presents to ED for AMS. Per family patient was found at 0700 hrs. lying on her left side with with urinary/fecal incontinence and decreased responsiveness. Patient was unable to stand and was unable to speak clearly. The patient was seen and evaluated in the emergency department and noted accelerated hypertension - BP 201/82 and acute kidney injury Cr. 1.4. Teleneurology was consulted in ED and recommended to admit for possible seizure versus metabolic encephalopathy workup. daily course; 09/28: consult neuro, start on keppra for possible seizure. D5NS for recurrent hypoglycemia 09/29: MRI pending. patient noted agitated, consulted psych. Replete KCl for hypokalemia 09/30; MRI brain showed no acute infarct. Patient is cleared by psych for discharge with outpatient follow-up. Patient clinically improved. Serum chemistry stable. Patient will be discharged home in stable condition with outpatient follow-up. Discharge diagnosis: Acute encephalopathy, postictal state following acute seizure Acute psychosis with schizoaffective disorder, stable now Acute seizure, placed on Keppra twice daily Malignant hypertension, improved on discharge KWASI on possible CKD, likely due to vasomotor nephropathy -Creatinine appears to be stable Diabetes mellitus type 2 with hypoglycemic episodes, -Recommended consistent carb diet, blood glucose diary, -Resume Lantus at a very low dose, follow-up with PCP for further management Hypoglycemia, resolved with dextrose saline Hypokalemia, repleted Time spent for discharge: 34 minutes Core Measure Documentation - Palliative Care Palliative Care/ Comfort Measures: Not Applicable - Core Measures Any of the following diagnoses?: none Exam - Physical Exam Narrative exam: General appearance: Present: No acute distress - EENT Eyes: Present: PERRL ENT: hearing intact, clear oral mucosa - Neck Neck: Present: supple, normal ROM - Respiratory Respiratory effort: normal Respiratory: bilateral: CTA - Cardiovascular Heart Sounds: Present: S1 & S2. Absent: rub, click - Extremities Extremities: pulses symmetrical, No edema Peripheral Pulses: within normal limits - Abdominal General gastrointestinal: Present: soft, non-tender, non-distended, normal bowel sounds Female genitourinary: Present: normal - Integumentary Integumentary: Present: clear, warm, dry - Musculoskeletal Musculoskeletal: No joint swelling or effusion - Psychiatric Psychiatric: Cooperative and follows command - Neurologic Neurologic: CNII-XII intact, moves all extremities, gait normal - Constitutional Vitals: Temp Pulse Resp BP Pulse Ox 98.9 F 65 20 145/55 100 09/30/20 08:19 09/30/20 08:19 09/30/20 08:19 09/30/20 08:19 09/30/20 08:19 Plan Activity: advance as tolerated Weight Bearing Status: Weight Bear as Tolerated Diet: low fat, low salt, diabetic Special Instructions: record daily BP diary, record blood sugar diary Additional Instructions: Repeat BMP in 1 week Follow up with: PRIMARY MD AZIZA [Primary Care Provider] - 3-5 Days MICHELE BOOTH MD [Staff Physician] - 7 Days Prescriptions: Insulin Glargine [Lantus VIAL] 10 unit SUB-Q QHS 30 Days #1 vial amLODIPine 10 mg PO QDAY #30 tablet hydrALAZINE [Apresoline TAB] 50 mg PO Q8H #90 tablet levETIRAcetam [Keppra TAB] 750 mg PO BID #60 tablet Metoprolol [Lopressor TAB] 50 mg PO BID #120 tablet
--- NOTE | 2020-09-30 15:25 | Progress Note ---
Subjective Date of service: 09/30/20 Principal diagnosis: Encephalopathy Interval history: MRI Brain is not suggestive of new CVA. Dr. Weiss Objective - Vital Sign Vital Signs - 12hr 09/30/20 09/30/20 08:19 12:27 Temperature 98.9 F 98.4 F Pulse Rate 65 70 Respiratory 20 20 Rate Blood Pressure 145/55 154/75 O2 Sat by Pulse 100 100 Oximetry - Laboratory Findings CBC and BMP: 09/27/20 10:50 09/29/20 20:56 Abnormal Lab Findings: Abnormal Labs 09/27/20 09/27/20 09/27/20 10:00 10:50 10:50 WBC 11.2 H RBC 3.00 L Hgb 7.8 L Hct 24.1 L MCH 26 L RDW 16.9 H [place] % (Auto) 8.0 H [place] # (Auto) 0.9 H Sodium Potassium 3.3 L Chloride Carbon Dioxide 35 H BUN 42 H Creatinine 1.4 H Glucose 239 H POC Glucose 206 H Troponin T 0.067 H Total Protein Albumin HDL Cholesterol 63 H Valproic Acid 09/27/20 09/28/20 09/28/20 10:50 11:16 15:20 WBC RBC Hgb Hct MCH RDW [place] % (Auto) [place] # (Auto) Sodium Potassium 3.5 L Chloride Carbon Dioxide 34 H BUN 31 H Creatinine Glucose 122 H POC Glucose 67 L Troponin T Total Protein 4.9 L Albumin 2.4 L HDL Cholesterol Valproic Acid 09/28/20 09/28/20 09/29/20 15:46 20:48 05:10 WBC RBC Hgb Hct MCH RDW [place] % (Auto) [place] # (Auto) Sodium Potassium Chloride Carbon Dioxide BUN Creatinine Glucose POC Glucose 113 H 150 H 166 H Troponin T Total Protein Albumin HDL Cholesterol Valproic Acid 09/29/20 09/29/20 09/29/20 11:56 16:34 20:56 WBC RBC Hgb Hct MCH RDW [place] % (Auto) [place] # (Auto) Sodium 136 L D Potassium 3.4 L Chloride 96.0 L Carbon Dioxide 35 H BUN 29 H Creatinine 1.4 H Glucose 232 H POC Glucose 158 H 195 H Troponin T Total Protein Albumin HDL Cholesterol Valproic Acid 09/29/20 09/29/20 09/30/20 20:56 23:30 06:50 WBC RBC Hgb Hct MCH RDW [place] % (Auto) [place] # (Auto) Sodium Potassium Chloride Carbon Dioxide BUN Creatinine Glucose POC Glucose 187 H 175 H Troponin T Total Protein Albumin HDL Cholesterol Valproic Acid 12.4 L
[2020-09-30] MEDS: traZODone 100 MG TAB PO SCH (21:01)
[2020-10-01] MEDS: hydrALAZINE 25 MG TAB PO SCH ×3 (01:37→23:31)
[2020-10-01] MEDS: INSULIN REGULAR, HUMAN 100 UNIT/ML 3ML VIAL SUB-Q SCH ×4 (01:38→23:32)
[2020-10-01] MEDS: amLODIPine 10 MG TAB PO SCH (16:54)
[2020-10-01] MEDS: BENZTROPINE 1 MG TAB PO SCH ×2 (16:54→21:07)
[2020-10-01] MEDS: ASPIRIN 325 MG TAB PO SCH (16:54)
[2020-10-01] MEDS: LOSARTAN 50 MG TAB PO SCH (16:54)
[2020-10-01] MEDS: levETIRAcetam 500 MG/5 ML ORAL LIQD PO SCH ×2 (16:56→21:07)
[2020-10-01] MEDS: METOPROLOL TARTRATE 25 MG TAB PO SCH ×2 (16:56→21:06)
[2020-10-01] MEDS: QUEtiapine 200 MG TAB PO SCH (16:56)
--- NOTE | 2020-10-01 18:19 | Progress Note ---
Assessment and Plan -- Acute encephalopathy - post ictal ? resolved Patient admitted with CVA protocol -CT head showed no acute process Concern for acute seizure, neurology consulted and recommended MRI brain and EEG Placed on Keppra, continue to monitor for neuro status --Acute psychosis with schizoaffective disorder resumed her home psych medications consult psych and follow recommendation --Acute seizure Patient on Depakote at home, check Depakote level Placed on Keppra, follow EEG and neurology recommendation -- Malignant hypertension Monitor blood pressure every shift, continue medical management. Adjust BP meds as needed -- Acute kidney injury (KWASI) on possible CKD Likely due to vasomotor nephropathy s/p IV fluid resuscitation therapy, Cr stable -- Diabetes type II Continue sliding-scale insulin, Accu-Chek, consistent carbohydrate diet, hypoglycemia protocol. --Hypoglycemia, s/p D5 normal saline, resolved --Hypokalemia, repleted --DVT prophylaxis SCD to bilateral lower extremities while in bed, patient is ambulatory Brief History: 50 YO Female currently an inpatient at [facility] with HTN, DM, Obesity, HLD, Psychosis, Schizoaffective Disorder presents to ED for AMS. Per family patient was found at 0700 hrs. lying on her left side with decreased responsiveness. Patient was unable to stand and was unable to speak clearly. The patient was seen and evaluated in the emergency department and noted accelerated hypertension and acute kidney injury. Teleneurology was consulted in ED and recommended to admited for possible seizure versus metabolic encephalopathy. 09/28: consult neuro, start on keppra for possible seizure. D5NS for recurrent hypoglycemia 09/29: MRI pending. patient noted agitated, consulted psych 09/30; MRI brain showed no acute infarct. Patient is cleared by psych for discharge with outpatient follow-up. Patient clinically improved. Serum annel sumeet stable. Patient will be discharged with outpatient follow-up. 10/01: patient was discharged to [facility] and home yesterday but was sent back immediately from there. she is currently homeless. CM assisting placement. reconsulted psych. Subjective Date of service: 10/01/20 Principal diagnosis: Encephalopathy Interval history: Patient seen and examined. Medical records and medication list reviewed. No acute event overnight noted by the RN. Patient appears very agitated today and wandering around nursing station Discussed plan of care at bedside with RN. Objective - Exam Narrative Exam: General appearance: Present: No acute distress - EENT Eyes: Present: PERRL ENT: hearing intact, clear oral mucosa - Neck Neck: Present: supple, normal ROM - Respiratory Respiratory effort: normal Respiratory: bilateral: CTA - Cardiovascular Heart Sounds: Present: S1 & S2. Absent: rub, click - Extremities Extremities: pulses symmetrical, No edema Peripheral Pulses: within normal limits - Abdominal General gastrointestinal: Present: soft, non-tender, non-distended, normal bowel sounds Female genitourinary: Present: normal - Integumentary Integumentary: Present: clear, warm, dry - Musculoskeletal Musculoskeletal: No joint swelling or effusion - Psychiatric Psychiatric: Cooperative and follows command - Neurologic Neurologic: CNII-XII intact, moves all extremities, gait normal - Labs CBC & Chem 7: 09/27/20 10:50 09/30/20 16:48 Labs: Abnormal lab results 10/01/20 10/01/20 10/01/20 Range/Units 09:41 12:42 15:44 POC Glucose 235 H 192 H 222 H (70-105) mg/dL HEART Score - HEART Score Troponin: Troponin T 0.067 ng/mL (0.00-0.029) H 09/27/20 10:50
[2020-10-01] MEDS: traZODone 100 MG TAB PO SCH (21:05)
[2020-10-02] MEDS ORDERED: HALOPERIDOL LACTATE 5 MG/1 ML INJ IM ONE (01:02)
[2020-10-02] MEDS: INSULIN REGULAR, HUMAN 100 UNIT/ML 3ML VIAL SUB-Q SCH ×3 (05:57→17:38)
[2020-10-02] MEDS: ASPIRIN 325 MG TAB PO SCH (09:33)
[2020-10-02] MEDS: levETIRAcetam 500 MG/5 ML ORAL LIQD PO SCH ×2 (09:33→22:03)
[2020-10-02] MEDS: METOPROLOL TARTRATE 25 MG TAB PO SCH ×2 (09:33→22:03)
[2020-10-02] MEDS: LOSARTAN 50 MG TAB PO SCH (09:34)
[2020-10-02] MEDS: amLODIPine 10 MG TAB PO SCH (09:34)
[2020-10-02] MEDS: INSULIN GLARGINE 100 UNITS/ML SUB-Q SCH (09:37)
[2020-10-02] MEDS: QUEtiapine 200 MG TAB PO SCH (09:38)
[2020-10-02] MEDS: hydrALAZINE 25 MG TAB PO SCH ×2 (09:46→17:36)
[2020-10-02] MEDS: BENZTROPINE 1 MG TAB PO SCH ×2 (09:48→22:03)
--- NOTE | 2020-10-02 13:08 | Discharge Summary ---
Providers - Providers Date of Admission: 09/27/20 14:30 Date of discharge: 10/02/20 Attending physician: DWIGHT SAPP 09/27/20 14:13 Occupational Therapy Evaluate and Treat [CONS] Routine Comment: Reason For Exam: Neuro deficits Physical Therapy Evaluation and Treat [CONS] Routine Comment: Reason For Exam: Neuro deficits 09/28/20 10:15 Consult to Physician [CONS] Routine Comment: Consulting Provider: ZAK KIRK Physician Instructions: Reason For Exam: ? seizure 09/29/20 14:20 Consult to Mental Health [CONS] Routine Reason For Exam: psychosis 09/29/20 16:00 Midline [Consult to PICC Line RN] [CONS] Stat Reason For Exam: need iv fluid and abx Type Line:: Midline 10/01/20 10:45 Consult to Mental Health [CONS] Routine Reason For Exam: psychosis Primary care physician: FOOD AIDE Hospitalization Condition: Stable Hospital course: 50 YO Female currently an inpatient at [facility] with HTN, DM, Obesity, HLD, Psychosis, Schizoaffective Disorder presents to ED for AMS. Per family patient was found at 0700 hrs. lying on her left side with with urinary/fecal incontinence and decreased responsiveness. Patient was unable to stand and was unable to speak clearly. The patient was seen and evaluated in the emergency department and noted accelerated hypertension - BP 201/82 and a cute kidney injury Cr. 1.4. Teleneurology was consulted in ED and recommended to admit for possible seizure versus metabolic encephalopathy workup. daily course; 09/28: consult neuro, start on keppra for possible seizure. D5NS for recurrent hypoglycemia 09/29: MRI pending. patient noted agitated, consulted psych. Replete KCl for hypokalemia 09/30; MRI brain showed no acute infarct. Patient is cleared by psych for discharge with outpatient follow-up. Patient clinically improved. Serum chemistry stable. Patient will be discharged home in stable condition with o utpatient follow-up. 10/02 Pt was discharged back from [facility] they did not have any beds. now has been arranged will D/C now Discharge diagnosis: Acute encephalopathy, postictal state following acute seizure Acute psychosis with schizoaffective disorder, stable now Acute seizure, placed on Keppra twice daily Malignant hypertension, improved on discharge KWASI on possible CKD, likely due to vasomotor nephropathy -Creatinine appears to be stable Diabetes mellitus type 2 with hypoglycemic episodes, -Recommended consistent carb diet, blood glucose diary, -Resume Lantus at a very low dose, follow-up with PCP for further management Hypoglycemia, resolved with dextrose saline Hypokalemia, repleted Time spent for discharge: 34 minutes Disposition: [id number]/TX-[id number] PSY HOSP/PSY UNIT Core Measure Documentation - Palliative Care Palliative Care/ Comfort Measures: Not Applicable - Core Measures Any of the following diagnoses?: none Exam - Constitutional Vitals: Temp Pulse Resp BP Pulse Ox 98.4 F 60 18 170/53 100 10/02/20 11:28 10/02/20 11:28 10/02/20 11:28 10/02/20 11:28 10/02/20 11:28 Plan Follow up with: PRIMARY CAREMD [Primary Care Provider] - 3-5 Days MICHELE BOOTH MD [Staff Physician] - 7 Days Prescriptions: amLODIPine 10 mg PO QDAY #30 tablet hydrALAZINE [Apresoline TAB] 50 mg PO Q8H #90 tablet levETIRAcetam [Keppra TAB] 750 mg PO BID #60 tablet Insulin Glargine [Lantus VIAL] 10 unit SUB-Q QHS 30 Days #1 vial Metoprolol [Lopressor TAB] 50 mg PO BID #120 tablet
[2020-10-02] MEDS: traZODone 100 MG TAB PO SCH (22:03)
[2020-10-03] MEDS: INSULIN REGULAR, HUMAN 100 UNIT/ML 3ML VIAL SUB-Q SCH ×4 (00:20→17:01)
[2020-10-03] MEDS: hydrALAZINE 25 MG TAB PO SCH ×3 (00:22→16:53)
[2020-10-03] MEDS: METOPROLOL TARTRATE 25 MG TAB PO SCH ×2 (09:19→21:25)
[2020-10-03] MEDS: LOSARTAN 50 MG TAB PO SCH (09:19)
[2020-10-03] MEDS: BENZTROPINE 1 MG TAB PO SCH ×2 (09:20→21:25)
[2020-10-03] MEDS: QUEtiapine 200 MG TAB PO SCH (09:20)
[2020-10-03] MEDS: ASPIRIN 325 MG TAB PO SCH (09:20)
[2020-10-03] MEDS: amLODIPine 10 MG TAB PO SCH (09:20)
[2020-10-03] MEDS: INSULIN GLARGINE 100 UNITS/ML SUB-Q SCH (09:22)
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
[2020-10-03] MEDS: levETIRAcetam 500 MG/5 ML ORAL LIQD PO SCH ×2 (13:05→21:23)
--- NOTE | 2020-10-03 17:15 | Discharge Summary ---
Providers - Providers Date of Admission: 09/27/20 14:30 Date of discharge: 10/04/20 Attending physician: MAYI WAGNER MD 09/27/20 14:13 Occupational Therapy Evaluate and Treat [CONS] Routine Comment: Reason For Exam: Neuro deficits Physical Therapy Evaluation and Treat [CONS] Routine Comment: Reason For Exam: Neuro deficits 09/28/20 10:15 Consult to Physician [CONS] Routine Comment: Consulting Provider: ZAK KIRK Physician Instructions: Reason For Exam: ? seizure 09/29/20 14:20 Consult to Mental Health [CONS] Routine Reason For Exam: psychosis 09/29/20 16:00 Midline [Consult to PICC Line RN] [CONS] Stat Reason For Exam: need iv fluid and abx Type Line:: Midline 10/01/20 10:45 Consult to Mental Health [CONS] Routine Reason For Exam: psychosis Primary care physician: TRAFFIC CONTROL OPERATOR Hospitalization Reason for admission: Acute psychosis, postictal ictal confusion, seizure disorder, DM Condition: Stable Hospital course: 50 YO Female currently an inpatient at [facility] with HTN, DM, Obesity, HLD, Psychosis, Schizoaffective Disorder presents to ED for AMS. Per family patient was found at 0700 hrs. lying on her left side with with urinary/fecal incontinence and decreased responsiveness. Patient was unable to stand and was unable to speak clearly. The patient was seen and evaluated in the emergency department and noted accelerated hypertension - BP 201/82 and acute kidney injury Cr. 1.4. Teleneurology was consulted in ED and recommended to admit for possible seizure versus metabolic encephalopathy workup. daily course; 09/28: consult neuro, start on keppra for possible seizure. D5NS for recurrent hypoglycemia 09/29: MRI pending. patient noted agitated, consulted psych. Replete KCl for hypokalemia 09/30; MRI brain showed no acute infarct. Patient is cleared by psych for discharge with outpatient follow-up. Patient clinically improved. Serum chemistry stable. Patient will be discharged home in stable condition with outpatient follow-up. 10/02 Pt was discharged back from [facility] they did not have any beds. now has been arranged will D/C now Discharge diagnosis: Acute encephalopathy, postictal state following acute seizure Acute psychosis with schizoaffective disorder, stable now Acute seizure, placed on Keppra twice daily Malignant hypertension, improved on discharge KWASI on possible CKD, likely due to vasomotor nephropathy -Creatinine appears to be stable Diabetes mellitus type 2 with hypoglycemic episodes, -Recommended consistent carb diet, blood glucose diary, -Resume Lantus at a very low dose, follow-up with PCP for further management Hypoglycemia, resolved with dextrose saline Hypokalemia, repleted Patient was declined for admission to inpatient psych. Patient was taken by her aunt. Patient advised to have follow-up with outpatient primary care physician and mental health. Disposition: [id number] TO HOME OR SELFCARE Time spent for discharge: 32 minutes - Discharge Diagnoses (1) Acute kidney injury (KWASI) with acute tubular necrosis (ATN) Status: Acute (2) Diabetes Status: Acute (3) History of schizoaffective disorder Status: Acute (4) Malignant hypertension Status: Acute Core Measure Documentation - Palliative Care Palliative Care/ Comfort Measures: Not Applicable - Core Measures Any of the following diagnoses?: none Exam - Physical Exam Narrative exam: Not in cardiopulmonary distress. The patient is obese. Vital signs as documented. Head exam is unremarkable. No scleral icterus . Neck is without jugular venous distension, thyromegaly, or carotid bruits. Lungs are clear to auscultation. Cardiac exam reveals regular rate and Rhythm. Abdominal exam reveals normal bowel sounds, nontender, no organomegaly. Extremities are nonedematous and both femoral and pedal pulses are normal. FINANCIAL SALES ADVISOR: Alert and oriented 3. No focal weakness. - Constitutional Vitals: Temp Pulse Resp BP Pulse Ox 98.6 F 93 H 18 160/72 95 10/03/20 16:46 10/03/20 16:53 10/03/20 16:46 10/03/20 16:53 10/03/20 16:46 Plan Activity: no restrictions Weight Bearing Status: Full Weight Bearing Diet: diabetic Additional Instructions: Follow-up with PCP and mental health. Follow up with: PRIMARY CAREMD [Primary Care Provider] - 3-5 Days MICHELE BOOTH MD [Staff Physician] - 7 Days Prescriptions: Insulin Glargine [Lantus VIAL] 10 unit SUB-Q QHS #1 vial amLODIPine 10 mg PO QDAY #30 tablet hydrALAZINE [Apresoline TAB] 50 mg PO Q8HR #180 tab levETIRAcetam [Keppra TAB] 750 mg PO BID #60 tablet Metoprolol [Lopressor TAB] 50 mg PO BID #60 tablet
--- NOTE | 2020-10-03 20:37 | Progress Note ---
Assessment and Plan Assessment and plan: 50 YO Female currently an inpatient at [facility] with HTN, DM, Obesity, HLD, Psychosis, Schizoaffective Disorder presents to ED for AMS. Per family patient was found at 0700 hrs. lying on her left side with with urinary/fecal incontinence and decreased responsiveness. Patient was unable to stand and was unable to speak clearly. The patient was seen and evaluated in the emergency department and noted accelerated hypertension - BP 201/82 and acute kidney injury Cr. 1.4. Teleneurology was consulted in ED and recommended to admit for possible seizure versus metabolic encephalopathy workup. daily course; 09/28: consult neuro, start on keppra for possible seizure. D5NS for recurrent hypoglycemia 09/29: MRI pending. patient noted agitated, consulted psych. Replete KCl for hypokalemia 09/30; MRI brain showed no acute infarct. Patient is cleared by psych for discharge with outpatient follow-up. Patient clinically improved. Serum chemistry stable. Patient will be discharged home in stable condition with outpatient follow-up. 10/02 Pt was discharged back from [facility] they did not have any beds. now has been arranged will D/C now Acute encephalopathy, postictal state following acute seizure Acute psychosis with schizoaffective disorder, stable now Acute seizure, placed on Keppra twice daily Malignant hypertension, improved on discharge KWASI on possible CKD, likely due to vasomotor nephropathy -Creatinine appears to be stable Diabetes mellitus type 2 with hypoglycemic episodes, -Recommended consistent carb diet, blood glucose diary, -Resume Lantus at a very low dose, follow-up with PCP for further management Hypoglycemia, resolved with dextrose saline Hypokalemia, repleted Patient was evaluated this morning and stable to be discharged. Patient is not a candidate for inpatient psych admission. Pending family to come and pick her. History Interval history: Patient was seen and evaluated this morning Patient was medically stable for discharge Psych evaluated and recommend no inpatient psych admission Patient was crying Hospitalist Physical - Physical exam Narrative exam: Not in cardiopulmonary distress. The patient is obese. Vital signs as documented. Head exam is unremarkable. No scleral icterus . Neck is without jugular venous distension, thyromegaly, or carotid bruits. Lungs are clear to auscultation. Cardiac exam reveals regular rate and Rhythm. Abdominal exam reveals normal bowel sounds, nontender, no organomegaly. Extremities are nonedematous and both femoral and pedal pulses are normal. 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 No focal weakness. - Constitutional Vitals: Temp Pulse Resp BP Pulse Ox 98.6 F 93 H 18 160/72 95 10/03/20 16:46 10/03/20 16:53 10/03/20 16:46 10/03/20 16:53 10/03/20 16:46 General appearance: Present: mild distress HEART Score - HEART Score Troponin: Troponin T 0.067 ng/mL (0.00-0.029) H 09/27/20 10:50 Results - Labs CBC & Chem 7: 09/27/20 10:50 09/30/20 16:48 Labs: Laboratory Last Values WBC 11.2 K/mm3 (4.5-11.0) H 09/27/20 10:50 RBC 3.00 M/mm3 (3.65-5.03) L 09/27/20 10:50 Hgb 7.8 gm/dl (10.1-14.3) L 09/27/20 10:50 Hct 24.1 % (30.3-42.9) L 09/27/20 10:50 MCV 80 fl (79-97) 09/27/20 10:50 MCH 26 pg (28-32) L 09/27/20 10:50 MCHC 32 % (30-34) 09/27/20 10:50 RDW 16.9 % (13.2-15.2) H 09/27/20 10:50 Plt Count 169 K/mm3 (140-440) 09/27/20 10:50 Lymph % (Auto) 24.2 % (13.4-35.0) 09/27/20 10:50 [place] % (Auto) 8.0 % (0.0-7.3) H 09/27/20 10:50 Eos % (Auto) 0.5 % (0.0-4.3) 09/27/20 10:50 Baso % (Auto) 0.3 % (0.0-1.8) 09/27/20 10:50 Lymph # (Auto) 2.7 K/mm3 (1.2-5.4) 09/27/20 10:50 [place] # (Auto) 0.9 K/mm3 (0.0-0.8) H 09/27/20 10:50 Eos # (Auto) 0.1 K/mm3 (0.0-0.4) 09/27/20 10:50 Baso # (Auto) 0.0 K/mm3 (0.0-0.1) 09/27/20 10:50 Seg Neutrophils % 67.0 % (40.0-70.0) 09/27/20 10:50 Seg Neutrophils # 7.5 K/mm3 (1.8-7.7) 09/27/20 10:50 PT 13.9 Sec. (12.2-14.9) 09/27/20 10:50 INR 1.09 (0.87-1.13) 09/27/20 10:50 APTT 25.7 Sec. (24.2-36.6) 09/27/20 10:50 Thrombin Time 19.0 Sec. (15.1-19.6) 09/27/20 10:50 Sodium 140 mmol/L (137-145) 09/30/20 16:48 Potassium 4.3 mmol/L (3.6-5.0) D 09/30/20 16:48 Chloride 100.6 mmol/L (98-107) 09/30/20 16:48 Carbon Dioxide 28 mmol/L (22-30) D 09/30/20 16:48 Anion Gap 16 mmol/L 09/30/20 16:48 BUN 34 mg/dL (7-17) H 09/30/20 16:48 Creatinine 1.5 mg/dL (0.6-1.2) H 09/30/20 16:48 Estimated GFR 44 ml/min 09/30/20 16:48 BUN/Creatinine Ratio 23 % 09/30/20 16:48 Glucose 152 mg/dL (65-100) H 09/30/20 16:48 POC Glucose 170 mg/dL (70-105) H 10/03/20 16:11 Hemoglobin A1c 8.6 % (4-6) H 09/30/20 16:48 Lactic Acid 1.40 mmol/L (0.7-2.0) 09/27/20 10:50 Calcium 9.0 mg/dL (8.4-10.2) 09/30/20 16:48 Total Bilirubin < 0.20 mg/dL (0.1-1.2) 09/27/20 10:50 Direct Bilirubin < 0.2 mg/dL (0-0.2) 09/27/20 10:50 Indirect Bilirubin 0.0 mg/dL 09/27/20 10:50 AST 18 units/L (5-40) 09/27/20 10:50 ALT 17 units/L (7-56) 09/27/20 10:50 Alkaline Phosphatase 48 units/L (35-129) 09/27/20 10:50 Ammonia 32.0 umol/L (25-60) 09/29/20 20:56 Troponin T 0.067 ng/mL (0.00-0.029) H 09/27/20 10:50 Total Protein 4.9 g/dL (6.3-8.2) L 09/27/20 10:50 Albumin 2.4 g/dL (3.9-5) L 09/27/20 10:50 Albumin/Globulin Ratio 1.0 % 09/27/20 10:50 Triglycerides 46 mg/dL (2-149) 09/27/20 10:50 Cholesterol 136 mg/dL (50-199) 09/27/20 10:50 LDL Cholesterol Direct 81 mg/dL (50-130) 09/27/20 10:50 HDL Cholesterol 63 mg/dL (40-59) H 09/27/20 10:50 Cholesterol/HDL Ratio 2.15 % 09/27/20 10:50 Urine Color Straw (Yellow) 09/27/20 11:22 Urine Turbidity Clear (Clear) 09/27/20 11:22 Urine pH 7.0 (5.0-7.0) 09/27/20 11:22 Ur Specific [place] 1.010 (1.003-1.030) 09/27/20 11:22 Urine Protein 100 mg/dl mg/dL (Negative) 09/27/20 11:22 Urine Glucose (UA) >=500 mg/dL (Negative) 09/27/20 11:22 Urine Ketones Neg mg/dL (Negative) 09/27/20 11:22 Urine Blood Sm (Negative) 09/27/20 11:22 Urine Nitrite Neg (Negative) 09/27/20 11:22 Urine Bilirubin Neg (Negative) 09/27/20 11:22 Urine Urobilinogen < 2.0 mg/dL (<2.0) 09/27/20 11:22 Ur Leukocyte Esterase Neg (Negative) 09/27/20 11:22 Urine WBC (Auto) 1.0 /HPF (0.0-6.0) 09/27/20 11:22 Urine RBC (Auto) 3.0 /HPF (0.0-6.0) 09/27/20 11:22 Urine Mucus Few /HPF 09/27/20 11:22 Valproic Acid 12.4 ug/mL (50-100) L 09/29/20 20:56 - Diagnostic Impressions Diagnostic Impressions: Echocardiogram 09/30/20 11:31 Transthoracic Echocardiogram Indication: Stroke BP: 193/88 HR: 76 Conclusions *Mild concentric left ventricular hypertrophy is observed. *Global left ventricular wall motion and contractility are within normal limits. *The estimated ejection fraction is 55-60%. *There is an E to A reversal in the mitral valve flow pattern suggestive of diastolic dysfunction. *There is no pericardial effusion. Findings Left Ventricle: The left ventricular chamber size is normal. Mild concentric left ventricular hypertrophy is observed. Global left ventricular wall motion and contractility are within normal limits. Global left ventricular systolic function is normal. The estimated ejection fraction is 55-60%. There is an E to A reversal in the mitral valve flow pattern suggestive of diastolic dysfunction. Left Atrium: The left atrial chamber size is normal. Right Ventricle: The right ventricular cavity size is normal. The right ventricular global systolic function is normal. Right Atrium: The right atrial cavity size is normal. Aortic Valve: Mild aortic leaflet calcification is visualized. There is no evidence of aortic regurgitation. Mitral Valve: Mild mitral leaflet calcification is visualized. There is trace of mitral regurgitation. Tricuspid Valve: The tricuspid valve leaflets are normal. There is trace tricuspid regurgitation. The right ventricular systolic pressure is calculated at 13 mmHg. Pulmonic Valve: There is no evidence of pulmonic valve thickening. Pericardium: There is no pericardial effusion. Aorta: The aorta appears normal. Venous: The inferior vena cava is not visualized. Measurements Chambers MM Name Value Normal Range Ao root diameter (MM) 3 cm (2 - 3.7) LA dimension (AP) MM 3.5 cm (1.9 - 4) LA:Ao ratio (MM) 1.17 ratio - AV cusp separation (MM) 2 cm (1.5 - 2.6) Chambers 2D Name Value Normal Range RVIDd (AP) 2D 2.8 cm (0.9 - 2.6) IVSd (2D) 1.31 cm (0.6 - 1.1) LVPWd (2D) 1.34 cm (0.6 - 1.1) IVS:LVPW ratio (2D) 0.98 ratio - LVIDd (2D) 4.22 cm (3.7 - 5.6) LVIDs (2D) 2.87 cm (2 - 3.8) LV FS ([place]z) (2D) 32 % - LV FS (cube) (2D) 32 % - EF Te[place]holz (2D) 60.5 % - Ao root diameter (2D) 2.6 cm (2 - 3.7) LA dimension (AP) 2D 3.7 cm (1.9 - 4) LA:Ao ratio (2D) 1.42 ratio - Volumes/Mass Name Value Normal Range LA ESV BP (A/L) 66 ml - LA ESV BP (A/L) index 33 ml/m2 - LA ESV SP 4CH (MOD) 61 ml - LA ESV SP 2CH (MOD) 70 ml - LA ESV BP (MOD) 66 ml - LA ESV BP (MOD) index 33 ml/m2 - Diastolic/Systolic Function Name Value Normal Range MV E-wave Vmax 0.62 m/sec - MV A-wave Vmax 0.85 m/sec - MV E:A ratio 0.7 ratio - LV septal e' Vmax 0.06 m/sec - LV lateral e' Vmax 0.06 m/sec - LV E:e' septal ratio 9.6 ratio - LV E:e' lateral ratio 10 ratio - Aortic Valve Name Value Normal Range AV VTI 24.5 cm - AV mean gradient 4 mmHg - LVOT diameter 2.5 cm - LVOT VTI 15.7 cm - LVOT mean gradient 1 mmHg - SV LVOT 77 ml - ELOY (continuity VTI) 3.15 cm2 - Mitral Valve Name Value Normal Range MV PHT 56 msec - MVA (PHT) 3.93 cm2 - Tricuspid Valve Name Value Normal Range TR Vmax 1.55 m/sec - TR peak gradient 10 mmHg - RAP 3 mmHg - RVSP 13 mmHg - Pulmonic Valve/Qp:Qs Name Value Normal Range PV Vmax 0.94 m/sec - PV peak gradient 4 mmHg - [place]/IV: Voiding Method Toilet IV Catheter Type [Right Upper Mid-line arm] IV Catheter Type [Right Hand] INT / Saline Lock IV Catheter Type [Left Forearm Peripheral IV ] IV Catheter Type [Left Peripheral IV External Jugular] Active Medications - Current Medications Current Medications: Generic Name Dose Route Start Last Admin Trade Name Freq PRN Reason Stop Dose Admin Acetaminophen 650 mg 09/27/20 15:00 Acetaminophen 325 Mg Tab PO Q4H PRN Pain, Mild (1-3) Amlodipine Besylate 10 mg 09/28/20 16:00 10/03/20 09:20 Amlodipine 10 Mg Tab PO 10 mg QDAY SANDI Administration Aspirin 325 mg 09/28/20 10:00 10/03/20 09:20 Aspirin 325 Mg Tab PO 325 mg QDAY SANDI Administration Atorvastatin Calcium 40 mg 09/27/20 22:00 10/02/20 22:03 Atorvastatin 40 Mg Tab PO 40 mg QHS SANDI Administration Benztropine Mesylate 1 mg 09/29/20 22:00 10/03/20 09:20 Benztropine 1 Mg Tab PO 1 mg BID SANDI Administration Bisacodyl 10 mg 09/27/20 15:00 Bisacodyl 10 Mg Rect Supp NC QDAY PRN Constipation Fluphenazine HCl 5 mg 09/29/20 22:00 10/03/20 09:20 Fluphenazine Hcl 5 Mg Tab PO 5 mg BID SANDI Administration Hydralazine HCl 50 mg 09/28/20 16:00 10/03/20 16:53 Hydralazine 25 Mg Tab PO 50 mg Q8H SADNI Administration Sodium Chloride 1,000 mls @ 75 mls/hr 09/30/20 10:15 Nacl 0.9% 1000 Ml IV DIRECT SANDI Insulin Glargine 5 units 10/02/20 08:00 10/03/20 09:22 Insulin Glargine 100 Units/Ml SUB-Q 5 units QAMDIAB SANDI Administration Insulin Human Regular 0 unit 09/28/20 18:00 10/03/20 17:01 Insulin Regular, Human 100 Unit/Ml 3ml Vial SUB-Q 2 unit Q6HR SANDI Administration Protocol Levetiracetam 750 mg 09/29/20 13:00 10/03/20 13:05 Levetiracetam 500 Mg/5 Ml Oral Liqd PO 750 mg BID SANDI Administration Lorazepam 2 mg 09/27/20 17:42 09/30/20 02:55 Lorazepam 2 Mg/Ml Vial IV 2 mg Q4H PRN Administration Agitation Losartan Potassium 100 mg 09/29/20 14:00 10/03/20 09:19 Losartan 50 Mg Tab PO 100 mg QDAY SANDI Administration Magnesium Hydroxide 30 ml 09/27/20 15:00 Magnesium Hydroxide (Mom) Oral Liqd Udc PO Q4H PRN Constipation Metoclopramide HCl 10 mg 09/27/20 15:00 Metoclopramide 10 Mg Tab PO Q6H PRN Nausea And Vomiting Metoprolol Tartrate 50 mg 09/29/20 14:00 10/03/20 09:19 Metoprolol Tartrate 25 Mg Tab PO 50 mg BID SANDI Administration Ondansetron HCl 4 mg 09/27/20 15:00 Ondansetron 4 Mg/2 Ml Inj IV Q8H PRN Nausea And Vomiting Promethazine HCl 25 mg 09/27/20 15:00 Promethazine 25 Mg Rect Supp NC Q6H PRN Nausea And Vomiting Quetiapine Fumarate 200 mg 09/30/20 10:00 10/03/20 09:20 Quetiapine 200 Mg Tab PO 200 mg QAM SANDI Administration Sodium Chloride 10 ml 09/27/20 15:00 09/30/20 02:55 Sodium Chloride 0.9% 10 Ml Flush Syringe IV 10 ml PRN PRN Administration LINE FLUSH Trazodone HCl 200 mg 09/29/20 22:00 10/02/20 22:03 Trazodone 100 Mg Tab PO 200 mg QHS SANDI Administration Nutrition/Malnutrition Assess - Dietary Evaluation Nutrition/Malnutrition Findings: Nutrition Notes Start: 09/28/20 12:03 Freq: Status: Active Protocol: Document 09/30/20 11:29 EN (Rec: 09/30/20 11:33 EN [email or web address]) Co-Sign 09/30/20 11:29 MK Nutrition Notes Initial or Follow up Brief Note Current Diagnosis Acute Kidney Injury,Diabetes, Hypertension,Hyperlipidemia Other Pertinent Diagnosis Acute CVA, schizoaffective D/O Current Diet Cardiac [place] Body Weight (kg) 0 Subjective/Other Information F/u for intakes and MST assessment. 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 Pt states that she is consuming 100% of meals and that she has a good appetite currently. Pt reports no recent weight loss and that her current weight is her UBW. Nutrition Intervention Anticipated Discharge Needs: Cardiac Diet Revisit per MD consult or patient Sign Off request:
[2020-10-03] MEDS: traZODone 100 MG TAB PO SCH (21:25)
[2020-10-04] MEDS: INSULIN REGULAR, HUMAN 100 UNIT/ML 3ML VIAL SUB-Q SCH (00:05)
[2020-10-04] MEDS: hydrALAZINE 25 MG TAB PO SCH ×2 (01:41→08:53)
[2020-10-04 08:48] VITALS: BP 171/76
[2020-10-04] MEDS: LOSARTAN 50 MG TAB PO SCH (08:48)
[2020-10-04] MEDS: METOPROLOL TARTRATE 25 MG TAB PO SCH (08:49)
[2020-10-04] MEDS: levETIRAcetam 500 MG/5 ML ORAL LIQD PO SCH (08:50)
[2020-10-04] MEDS: amLODIPine 10 MG TAB PO SCH (08:51)
[2020-10-04] MEDS: ASPIRIN 325 MG TAB PO SCH (08:54)
[2020-10-04] MEDS: QUEtiapine 200 MG TAB PO SCH (08:54)
[2020-10-04] MEDS: BENZTROPINE 1 MG TAB PO SCH (08:55)
[2020-10-04] MEDS: INSULIN GLARGINE 100 UNITS/ML SUB-Q SCH (08:58)
== END 2020-10-04 09:42 | disposition home or self-care (01) | DRG 100 ==
LOC: ED 09:43 → 4A 14:30 → OBSVTOIN 14:30 → 4A 20:33 → UNDODISIN 09-30 18:12
PROVIDERS: ADMIT Internal Medicine; ATTEND Internal Medicine
DX: G40.909 Epilepsy, unspecified, not intractable, without status epilepticus (principal); N17.0 Acute kidney failure with tubular necrosis; Z88.8 Allergy status to other drugs, medicaments and biological substances; F25.9 Schizoaffective disorder, unspecified; E78.5 Hyperlipidemia, unspecified; E66.9 Obesity, unspecified; Z68.32 Body mass index [BMI] 32.0-32.9, adult; Z82.49 Family history of ischemic heart disease and other diseases of the circulatory system; Z83.3 Family history of diabetes mellitus; E11.649 Type 2 diabetes mellitus with hypoglycemia without coma; F31.9 Bipolar disorder, unspecified; E87.6 Hypokalemia; F41.9 Anxiety disorder, unspecified; F43.10 Post-traumatic stress disorder, unspecified; E11.22 Type 2 diabetes mellitus with diabetic chronic kidney disease; I12.9 Hypertensive chronic kidney disease with stage 1 through stage 4 chronic kidney disease, or unspecified chronic kidney disease; Z88.0 Allergy status to penicillin; N18.9 Chronic kidney disease, unspecified
CPT/HCPCS: 36415; 70450; 70551; 71045; 80048; 80061; 80076; 80164; 81001; 82140; 82962; 83036; 84484; 85025; 85610; 85670; 85730; 90471; 93005; 93306; 93880; 96365; 96372; 96375; 96376; G0378; A9270-GY; J0360; J1630; J1815; J1953; J2060; J3486; J7030; J7042

== ENCOUNTER 2020-09-30 19:00 | Emergency (ER) | payer MEDICAID | END 2020-09-30 22:00 | disposition left against medical advice (07) | LOC: ED 19:00 | DX: Z00.00 Encounter for general adult medical examination without abnormal findings (principal); Z53.21 Procedure and treatment not carried out due to patient leaving prior to being seen by health care provider ==